=== PATIENT | male | born 1945 | race Caucasian/White ===

== ENCOUNTER 2017-05-19 11:39 | Inpatient (IN) | payer MEDICARE ==
[~2017-05-19] VITALS: Ht 177.8 cm; Wt 114.1 kg
[~2017-05-19 11:39] MED LIST: DOXA2TAB2 PO; LISI-600 PO; PRAV20TA4 PO; TEST200V10 IM
[2017-05-19 11:59] LABS: BASOPHILS % (AUTO) 0.3 % (0-1); EOSINOPHILS # (AUTO) 0.1 X10'3 (0-0.9); HEMATOCRIT 46.5 % (42.0-52.0); HEMOGLOBIN 15.9 g/dl (14.0-17.9); LYMPHOCYTES # (AUTO) 1.5 X10'3 (1.1-4.8); LYMPHOCYTES % (AUTO) 22.3 % (21-51); MEAN CORPUSCULAR HEMOGLOBIN 28.6 PG (27.0-31.0); MEAN CORPUSCULAR HGB CONC 34.2 % (33.0-36.5); MEAN CORPUSCULAR VOLUME 83.6 FL (78-98); MEAN PLATELET VOLUME 9.6 FL (7.4-10.4); MONOCYTES # (AUTO) 0.3 X10'3 (0-0.9); MONOCYTES % (AUTO) 3.8 % (2-12); NEUTROPHILS # (AUTO) 4.7 X10'3 (1.8-7.7); NEUTROPHILS % (AUTO) 71.6 % (42-75); PLATELET COUNT 142 X10'3 (140-440); RED BLOOD COUNT 5.56 X10'6 (4.70-6.10); WHITE BLOOD COUNT 6.6 X10'3 (4.5-11.0)
[2017-05-19 12:08] LABS: PARTIAL THROMBOPLASTIN TIME 24 SECONDS (22-32); PROTHROMBIN TIME 10.2 SECONDS (9.0-12.0)
[2017-05-19 12:17] LABS: ALANINE AMINOTRANSFERASE 41 U/L (12-78); ALBUMIN 4.4 G/DL (3.4-5.0); ALBUMIN/GLOBULIN RATIO 1.3 (1.1-1.5); ALKALINE PHOSPHATASE 147 IU/L (46-116); ANION GAP 12 (8-16); ASPARTATE AMINO TRANSFERASE 24 U/L (10-37); BILIRUBIN,TOTAL 1.6 MG/DL (0.1-1.0); BLOOD UREA NITROGEN 25 MG/DL (7-18); BUN/CREATININE RATIO 17.1 (5.4-32.0); CALCIUM 9.6 MG/DL (8.5-10.1); CHLORIDE 103 MMOL/L (99-107); CREATININE 1.46 MG/DL (0.60-1.10); GLUCOSE 247 MG/DL (70-104); POTASSIUM 4.1 MMOL/L (3.5-5.1); SODIUM 140 MMOL/L (135-145); TOTAL CARBON DIOXIDE 24.9 MMOL/L (24-32); TOTAL PROTEIN 7.9 G/DL (6.4-8.2); eGFR 48 ML/MIN
[2017-05-19] MEDS ORDERED: ondansetron/PF 4mg/2ml inj IV PRN (13:10)
[2017-05-19] MEDS ORDERED: morphine 4 MG/ML inj SYRINge IV PRN ×2 (13:10)
[2017-05-19] MEDS ORDERED: potassium Cl 20 mEq SR tablet PO PRN ×2 (13:10)
[2017-05-19] MEDS ORDERED: magnesium 4gm in 100ml NS 100 ML IV PRN (13:10)
[2017-05-19] MEDS ORDERED: potassium Cl 40MEQ/NS 500ml 500 ML IV PRN ×2 (13:10)
[2017-05-19] MEDS ORDERED: magnesium 2GM in 50ml NS 50 ML IV PRN (13:10)
[2017-05-19] MEDS ORDERED: mag hydrox/Alum hydrox/simeth 30ml oral suspension PO PRN (13:10)
[2017-05-19] MEDS ORDERED: magnesium hydroxide 30ml (MOM) UD suspension PO PRN (13:10)
[2017-05-19] MEDS ORDERED: magnesium Cl slow-release 64mg tablet PO PRN (13:10)
[2017-05-19 15:58] LABS: HEMOGLOBIN A1C 8.4 % (4.5-6.2)
[2017-05-19 16:20] VITALS: BP 141/84
[2017-05-19] MEDS ORDERED: ASPI-1265 PO (17:57)
[2017-05-19 19:00] VITALS: BP_SYST 121; BP_SYST 122; BP_DIAS 77; BP_DIAS 81
[2017-05-19] MEDS ORDERED: enoxaparin 40mg/0.4ml syringe SUBCUT SCH (21:00)
[2017-05-19] MEDS: atorvastatin 10mg tablet PO SCH (21:22)
[2017-05-19] MEDS: lisinopril 20mg tablet PO SCH (21:22)
[2017-05-19] MEDS: enoxaparin 30mg/0.3ml syringe SUBCUT SCH (21:23)
[2017-05-19] MEDS: enoxaparin 80mg/0.8ml syringe SUBCUT SCH (21:24)
[2017-05-19 23:00] VITALS: BP 107/65
[2017-05-20] VITALS (16 sets, daily range): BP systolic 111–140; BP diastolic 67–82
[2017-05-20 05:46] LABS: CHOL/HDL RATIO 5.2 (0.00-4.99); CHOLESTEROL 141 MG/DL (0-200); HDL CHOLESTEROL 27 MG/DL (35-60); LDL CHOLESTEROL 91 MG/DL (50-100); MAGNESIUM 2.1 MG/DL (1.5-2.4); TRIGLYCERIDES 122 MG/DL (20-135)
[2017-05-20 05:56] LABS: TROPONIN I 0.66 NG/ML (0.0-0.05)
[2017-05-20] MEDS: K and/or MAG REPLACEMENT MC SCH (08:00)
[2017-05-20] MEDS ORDERED: enoxaparin 40mg/0.4ml syringe SUBCUT SCH (08:00)
[2017-05-20] MEDS: guaiFENesin ER 600mg tablet PO SCH ×2 (09:35→21:28)
[2017-05-20] MEDS: enoxaparin 30mg/0.3ml syringe SUBCUT SCH ×2 (09:38→21:34)
[2017-05-20] MEDS: enoxaparin 80mg/0.8ml syringe SUBCUT SCH ×2 (09:40→21:33)
[2017-05-20] MEDS: doxazosin mesylate 2mg tablet PO SCH (09:53)
[2017-05-20] MEDS ORDERED: aspirin 325mg tablet PO ONE (10:20)
[2017-05-20] MEDS: normal saline 1000ml 1,000 ML IV SCH ×3 (10:52→22:25)
[2017-05-20] MEDS: metoprolol tartrate 25mg tablet PO SCH ×2 (10:58→21:28)
[2017-05-20 11:29] LABS: ALBUMIN 4.2 G/DL (3.4-5.0); ANION GAP 10 (8-16); BLOOD UREA NITROGEN 22 MG/DL (7-18); BUN/CREATININE RATIO 17.5 (5.4-32.0); CALCIUM 9.5 MG/DL (8.5-10.1); CHLORIDE 102 MMOL/L (99-107); CREATININE 1.26 MG/DL (0.60-1.10); GLUCOSE 184 MG/DL (70-104); POTASSIUM 4.3 MMOL/L (3.5-5.1); SODIUM 140 MMOL/L (135-145); TOTAL CARBON DIOXIDE 27.7 MMOL/L (24-32); eGFR 57 ML/MIN
[2017-05-20] MEDS ORDERED: iohexol 350MG/ML 100ml bottle IV ONE (12:13)
[2017-05-20] MEDS ORDERED: LIDOcaine 1%/PF (10mg/ml) 5ml vial ONE ×2 (12:13→13:21)
[2017-05-20] MEDS ORDERED: heparin 1,000 UNITS/NS 500ml 0 ML ONE (12:14)
[2017-05-20] MEDS ORDERED: midazolam 2 mg/2 ml injection ONE (13:21)
[2017-05-20] MEDS ORDERED: heparin 1,000unit/ml 10ml vial 10 ML ONE (13:21)
[2017-05-20] MEDS ORDERED: fentaNYL/PF 50MCG/1 ML 2ML syringe ONE (13:21)
[2017-05-20] MEDS ORDERED: iohexol 350 MG/1 ML 200ml bottle ONE (14:05)
[2017-05-20] MEDS ORDERED: iohexol 350 MG/ML 50ML vial IV ONE (14:10)
[2017-05-20] MEDS ORDERED: normal saline 1000ml 1,000 ML IV SCH (16:00)
[2017-05-20] MEDS ORDERED: HYDROcodone/acetaminophen 5mg/325mg tablet PO PRN (16:00)
[2017-05-20] MEDS ORDERED: nitroGLYCERIN 0.4mg SUBLingual tab SL PRN (16:05)
[2017-05-20] MEDS ORDERED: OXAZEpam 15mg capsule PO PRN (16:05)
[2017-05-20] MEDS ORDERED: proCHLORperazine 10 MG/2 ml inj IV PRN (16:05)
[2017-05-20 16:21] LABS: CHOLESTEROL 136 MG/DL (0-200); HDL CHOLESTEROL 27 MG/DL (35-60); LDL CHOLESTEROL 88 MG/DL (50-100); TRIGLYCERIDES 115 MG/DL (20-135)
[2017-05-20] MEDS: lisinopril 20mg tablet PO SCH (21:34)
[2017-05-20] MEDS: atorvastatin 10mg tablet PO SCH (21:34)
[2017-05-20] MEDS: docusate sod 100mg capsule PO SCH (22:33)
[2017-05-21 03:00] VITALS: BP 128/79
[2017-05-21 03:11] VITALS: BP 126/82
[2017-05-21] MEDS: acetaminophen 325mg tablet PO PRN ×2 (04:23→12:26)
[2017-05-21 07:00] VITALS: BP_SYST 90; BP_SYST 96; BP_DIAS 52; BP_DIAS 53
[2017-05-21] MEDS: metoprolol tartrate 25mg tablet PO SCH ×2 (08:00→19:46)
[2017-05-21] MEDS: doxazosin mesylate 2mg tablet PO SCH (08:00)
[2017-05-21] MEDS: K and/or MAG REPLACEMENT MC SCH (08:00)
[2017-05-21] MEDS ORDERED: aspirin 325mg tablet PO SCH (08:30)
[2017-05-21] MEDS ORDERED: dextrose ORAL solution 15 GM/59 ML bottle PO PRN ×2 (08:45)
[2017-05-21] MEDS ORDERED: dextrose 50%-water 50ml dispensing syringe IV PRN ×2 (08:45)
[2017-05-21] MEDS ORDERED: MESSAGE TO PHARMACY PO ONE (08:45)
[2017-05-21] MEDS ORDERED: glucagon, human recombinant 1mg kit SUBCUT PRN (08:45)
[2017-05-21] MEDS: guaiFENesin ER 600mg tablet PO SCH ×2 (09:46→19:46)
[2017-05-21] MEDS: docusate sod 100mg capsule PO SCH ×2 (09:46→19:46)
[2017-05-21] MEDS: enoxaparin 30mg/0.3ml syringe SUBCUT SCH (09:51)
[2017-05-21] MEDS: enoxaparin 80mg/0.8ml syringe SUBCUT SCH (09:53)
[2017-05-21] MEDS: insulin Lispro (HumaLOG) vial - multi-dose SQ SCH (10:00)
[2017-05-21] MEDS: aspirin 81mg tab.chew PO SCH (10:03)
[2017-05-21] MEDS: HYDROcodone/acetaminophen 10/325mg tab PO PRN ×2 (14:47→19:47)
[2017-05-21 15:00] VITALS: BP 103/57
[2017-05-21] MEDS: normal saline 1000ml 1,000 ML IV SCH (16:20)
[2017-05-21 18:30] VITALS: BP 104/60
[2017-05-21] MEDS ORDERED: cyclobenzaprine 10mg tablet PO PRN (20:10)
[2017-05-21] MEDS: atorvastatin 10mg tablet PO SCH (20:46)
[2017-05-21] MEDS: lisinopril 20mg tablet PO SCH (20:46)
[2017-05-21] MEDS: insulin glargine (Lantus) pen - multi-dose SQ SCH (20:51)
[2017-05-21 22:00] VITALS: BP 91/57
[2017-05-22] MEDS: normal saline 1000ml 1,000 ML IV SCH ×3 (02:43→22:20)
[2017-05-22 05:31] LABS: BASOPHILS % (AUTO) 0.2 % (0-1); EOSINOPHILS # (AUTO) 0.1 X10'3 (0-0.9); EOSINOPHILS % (AUTO) 1.3 % (0-6); HEMATOCRIT 31.2 % (42.0-52.0); HEMOGLOBIN 10.4 g/dl (14.0-17.9); LYMPHOCYTES # (AUTO) 1.9 X10'3 (1.1-4.8); LYMPHOCYTES % (AUTO) 18.9 % (21-51); MEAN CORPUSCULAR HEMOGLOBIN 28.5 PG (27.0-31.0); MEAN CORPUSCULAR HGB CONC 33.5 % (33.0-36.5); MEAN CORPUSCULAR VOLUME 85.2 FL (78-98); MEAN PLATELET VOLUME 9.9 FL (7.4-10.4); MONOCYTES # (AUTO) 0.5 X10'3 (0-0.9); NEUTROPHILS # (AUTO) 7.4 X10'3 (1.8-7.7); NEUTROPHILS % (AUTO) 74.6 % (42-75); PLATELET COUNT 129 X10'3 (140-440); RED BLOOD COUNT 3.66 X10'6 (4.70-6.10); RED CELL DISTRIBUTION WIDTH 13.4 % (11.5-14.5)
[2017-05-22 05:58] LABS: ALBUMIN 2.9 G/DL (3.4-5.0); ANION GAP 9 (8-16); BLOOD UREA NITROGEN 30 MG/DL (7-18); BUN/CREATININE RATIO 17.9 (5.4-32.0); CALCIUM 8.2 MG/DL (8.5-10.1); CHLORIDE 108 MMOL/L (99-107); CREATININE 1.68 MG/DL (0.60-1.10); GLUCOSE 243 MG/DL (70-104); POTASSIUM 4.5 MMOL/L (3.5-5.1); SODIUM 140 MMOL/L (135-145); TOTAL CARBON DIOXIDE 23.4 MMOL/L (24-32); eGFR 41 ML/MIN
[2017-05-22 06:00] VITALS: BP 98/60
[2017-05-22] MEDS: metoprolol tartrate 25mg tablet PO SCH ×2 (08:00→20:05)
[2017-05-22] MEDS: K and/or MAG REPLACEMENT MC SCH (08:00)
[2017-05-22] MEDS: doxazosin mesylate 2mg tablet PO SCH (08:00)
[2017-05-22 08:45] LABS: PARTIAL THROMBOPLASTIN TIME 26 SECONDS (22-32); PROTHROMBIN TIME 10.2 SECONDS (9.0-12.0)
[2017-05-22 11:00] VITALS: BP 102/60
[2017-05-22 11:32] LABS: BASOPHILS % (AUTO) 0.3 % (0-1); EOSINOPHILS # (AUTO) 0.1 X10'3 (0-0.9); EOSINOPHILS % (AUTO) 1.1 % (0-6); HEMATOCRIT 31.5 % (42.0-52.0); HEMOGLOBIN 10.8 g/dl (14.0-17.9); LYMPHOCYTES # (AUTO) 2.6 X10'3 (1.1-4.8); LYMPHOCYTES % (AUTO) 24.4 % (21-51); MEAN CORPUSCULAR HEMOGLOBIN 28.5 PG (27.0-31.0); MEAN CORPUSCULAR HGB CONC 34.2 % (33.0-36.5); MEAN CORPUSCULAR VOLUME 83.4 FL (78-98); MEAN PLATELET VOLUME 10.4 FL (7.4-10.4); MONOCYTES # (AUTO) 0.5 X10'3 (0-0.9); MONOCYTES % (AUTO) 4.8 % (2-12); NEUTROPHILS # (AUTO) 7.3 X10'3 (1.8-7.7); NEUTROPHILS % (AUTO) 69.4 % (42-75); PLATELET COUNT 143 X10'3 (140-440); RED BLOOD COUNT 3.78 X10'6 (4.70-6.10); RED CELL DISTRIBUTION WIDTH 13.5 % (11.5-14.5); WHITE BLOOD COUNT 10.5 X10'3 (4.5-11.0)
[2017-05-22] MEDS: docusate sod 100mg capsule PO SCH ×2 (12:19→20:04)
[2017-05-22] MEDS: guaiFENesin ER 600mg tablet PO SCH ×2 (12:21→20:05)
[2017-05-22] MEDS: insulin Lispro (HumaLOG) vial - multi-dose SQ SCH (12:57)
[2017-05-22 15:00] VITALS: BP 110/57
[2017-05-22 18:00] VITALS: BP 124/72
[2017-05-22 20:03] VITALS: BP 109/60
[2017-05-22] MEDS: lisinopril 20mg tablet PO SCH (20:05)
[2017-05-22] MEDS: atorvastatin 10mg tablet PO SCH (20:07)
[2017-05-22] MEDS: insulin glargine (Lantus) pen - multi-dose SQ SCH (21:07)
[2017-05-22 22:00] VITALS: BP 101/66
[2017-05-23 02:00] VITALS: BP 116/76
[2017-05-23 06:14] LABS: ALBUMIN 2.9 G/DL (3.4-5.0); ANION GAP 9 (8-16); BLOOD UREA NITROGEN 22 MG/DL (7-18); BUN/CREATININE RATIO 16.5 (5.4-32.0); CALCIUM 8.1 MG/DL (8.5-10.1); CHLORIDE 109 MMOL/L (99-107); CREATININE 1.33 MG/DL (0.60-1.10); GLUCOSE 130 MG/DL (70-104); MAGNESIUM 1.9 MG/DL (1.5-2.4); SODIUM 144 MMOL/L (135-145); TOTAL CARBON DIOXIDE 25.7 MMOL/L (24-32); eGFR 53 ML/MIN
[2017-05-23 07:00] VITALS: BP 104/64
[2017-05-23] MEDS: guaiFENesin ER 600mg tablet PO SCH ×2 (07:17→19:32)
[2017-05-23] MEDS: metoprolol tartrate 25mg tablet PO SCH ×3 (07:17→08:00)
[2017-05-23] MEDS: doxazosin mesylate 2mg tablet PO SCH (07:17)
[2017-05-23] MEDS: aspirin 81mg tab.chew PO SCH (07:17)
[2017-05-23] MEDS: docusate sod 100mg capsule PO SCH ×2 (07:18→19:32)
[2017-05-23] MEDS: K and/or MAG REPLACEMENT MC SCH (08:00)
[2017-05-23] MEDS: normal saline 1000ml 1,000 ML IV SCH ×2 (08:20→18:20)
[2017-05-23] MEDS: insulin Lispro (HumaLOG) vial - multi-dose SQ SCH ×3 (08:28→19:22)
[2017-05-23 11:00] VITALS: BP 94/39
[2017-05-23 15:00] VITALS: BP 106/61
[2017-05-23 19:00] VITALS: BP 100/55
[2017-05-23] MEDS: lisinopril 20mg tablet PO SCH (21:17)
[2017-05-23] MEDS: atorvastatin 10mg tablet PO SCH (21:17)
[2017-05-23] MEDS: insulin glargine (Lantus) pen - multi-dose SQ SCH (21:25)
[2017-05-23 23:00] VITALS: BP 103/56
[2017-05-24 03:00] VITALS: BP 140/78
[2017-05-24] MEDS: normal saline 1000ml 1,000 ML IV SCH ×2 (03:01→14:58)
[2017-05-24 06:00] VITALS: BP 125/76
[2017-05-24 06:08] LABS: ALBUMIN 2.8 G/DL (3.4-5.0); ANION GAP 9 (8-16); BLOOD UREA NITROGEN 18 MG/DL (7-18); BUN/CREATININE RATIO 14.4 (5.4-32.0); CALCIUM 8.1 MG/DL (8.5-10.1); CHLORIDE 109 MMOL/L (99-107); CREATININE 1.25 MG/DL (0.60-1.10); GLUCOSE 144 MG/DL (70-104); MAGNESIUM 1.9 MG/DL (1.5-2.4); POTASSIUM 3.9 MMOL/L (3.5-5.1); SODIUM 143 MMOL/L (135-145); TOTAL CARBON DIOXIDE 25.5 MMOL/L (24-32); eGFR 57 ML/MIN
[2017-05-24] MEDS: metoprolol tartrate 25mg tablet PO SCH ×2 (07:29→19:20)
[2017-05-24] MEDS: docusate sod 100mg capsule PO SCH ×2 (07:29→19:21)
[2017-05-24] MEDS: guaiFENesin ER 600mg tablet PO SCH ×2 (07:29→19:20)
[2017-05-24] MEDS: aspirin 81mg tab.chew PO SCH (07:30)
[2017-05-24] MEDS: doxazosin mesylate 2mg tablet PO SCH (07:30)
[2017-05-24] MEDS: K and/or MAG REPLACEMENT MC SCH (08:00)
[2017-05-24] MEDS: insulin Lispro (HumaLOG) vial - multi-dose SQ SCH ×3 (08:32→19:25)
[2017-05-24 11:00] VITALS: BP 109/60
[2017-05-24 13:16] LABS: ABG BASE EXCESS -0.6 mmol/L (-2.0-3.0); ABG HCO3 23.2 mmol/L (22.0-26.0); ABG OXYGEN SATURATION 94.1 % (95-98); ABG PCO2 (T) 35.4 mmHg (35.0-48.0); ABG PH (T) 7.435 (7.350-7.450); ABG PO2 (T) 71.5 mmHg (83-108); ALLEN'S TEST Positive; FMetHb 0.1 % (0.3-1.12); TOTAL HEMOGLOBIN 11.5 G/dl (14.0-18.0)
[2017-05-24 15:00] VITALS: BP 124/71
[2017-05-24 19:00] VITALS: BP 141/72
[2017-05-24] MEDS: insulin glargine (Lantus) pen - multi-dose SQ SCH (21:00)
[2017-05-24] MEDS: lisinopril 20mg tablet PO SCH (21:45)
[2017-05-24] MEDS: atorvastatin 10mg tablet PO SCH (21:45)
[2017-05-24 23:00] VITALS: BP 117/75
[2017-05-25] MEDS: normal saline 1000ml 1,000 ML IV SCH ×3 (01:07→22:26)
[2017-05-25 03:00] VITALS: BP 108/62
[2017-05-25 05:56] LABS: ALBUMIN 3.2 G/DL (3.4-5.0); ANION GAP 8 (8-16); BLOOD UREA NITROGEN 17 MG/DL (7-18); BUN/CREATININE RATIO 25.8 (5.4-32.0); CALCIUM 8.7 MG/DL (8.5-10.1); CHLORIDE 108 MMOL/L (99-107); CREATININE 0.66 MG/DL (0.60-1.10); GLUCOSE 143 MG/DL (70-104); MAGNESIUM 2.2 MG/DL (1.5-2.4); POTASSIUM 4.5 MMOL/L (3.5-5.1); SODIUM 143 MMOL/L (135-145); TOTAL CARBON DIOXIDE 27.2 MMOL/L (24-32); eGFR > 90 ML/MIN
[2017-05-25 06:00] VITALS: BP 124/68
[2017-05-25] MEDS: K and/or MAG REPLACEMENT MC SCH (08:00)
[2017-05-25] MEDS: metoprolol tartrate 25mg tablet PO SCH ×2 (08:17→22:11)
[2017-05-25] MEDS: docusate sod 100mg capsule PO SCH ×2 (08:17→22:12)
[2017-05-25] MEDS: aspirin 81mg tab.chew PO SCH (08:17)
[2017-05-25] MEDS: guaiFENesin ER 600mg tablet PO SCH ×2 (08:18→20:00)
[2017-05-25] MEDS: doxazosin mesylate 2mg tablet PO SCH (08:24)
[2017-05-25 11:00] VITALS: BP 112/71
[2017-05-25] MEDS: insulin Lispro (HumaLOG) vial - multi-dose SQ SCH (13:48)
[2017-05-25 15:00] VITALS: BP 114/65
[2017-05-25 19:00] VITALS: BP 115/85
[2017-05-25] MEDS: insulin glargine (Lantus) pen - multi-dose SQ SCH (21:00)
[2017-05-25] MEDS: atorvastatin 10mg tablet PO SCH (22:15)
[2017-05-25] MEDS: lisinopril 20mg tablet PO SCH (22:16)
[2017-05-25 23:00] VITALS: BP 115/85
[2017-05-26 03:00] VITALS: BP 112/61
[2017-05-26] MEDS: benzonatate 100mg capsule PO PRN ×2 (03:02→19:45)
[2017-05-26] MEDS ORDERED: insulin regular, human inj. 100 UNITS in normal saline 100ml IV soln 100 ML IV SCH ×2 (05:00)
[2017-05-26] MEDS ORDERED: insulin Lispro (HumaLOG) vial - multi-dose SQ SCH (05:00)
[2017-05-26] MEDS ORDERED: ceFAZolin inj. 3,000 MG in normal saline 100ml IV soln 100 ML IV ONE (05:00)
[2017-05-26] MEDS ORDERED: dextrose 50%-water 50ml dispensing syringe IV PRN (05:00)
[2017-05-26 05:47] LABS: ALBUMIN 3.1 G/DL (3.4-5.0); ANION GAP 6 (8-16); BLOOD UREA NITROGEN 19 MG/DL (7-18); BUN/CREATININE RATIO 15.1 (5.4-32.0); CALCIUM 8.5 MG/DL (8.5-10.1); CHLORIDE 108 MMOL/L (99-107); CREATININE 1.26 MG/DL (0.60-1.10); GLUCOSE 146 MG/DL (70-104); MAGNESIUM 2.1 MG/DL (1.5-2.4); POTASSIUM 4.1 MMOL/L (3.5-5.1); SODIUM 142 MMOL/L (135-145); TOTAL CARBON DIOXIDE 28.2 MMOL/L (24-32); eGFR 57 ML/MIN
[2017-05-26 05:58] LABS: BASOPHILS % (AUTO) 0.3 % (0-1); EOSINOPHILS # (AUTO) 0.1 X10'3 (0-0.9); EOSINOPHILS % (AUTO) 1.7 % (0-6); HEMATOCRIT 26.6 % (42.0-52.0); HEMOGLOBIN 9.4 g/dl (14.0-17.9); LYMPHOCYTES # (AUTO) 1.9 X10'3 (1.1-4.8); LYMPHOCYTES % (AUTO) 28.5 % (21-51); MEAN CORPUSCULAR HEMOGLOBIN 29.7 PG (27.0-31.0); MEAN CORPUSCULAR HGB CONC 35.5 % (33.0-36.5); MEAN CORPUSCULAR VOLUME 83.8 FL (78-98); MEAN PLATELET VOLUME 9.6 FL (7.4-10.4); MONOCYTES # (AUTO) 0.5 X10'3 (0-0.9); NEUTROPHILS # (AUTO) 4.3 X10'3 (1.8-7.7); NEUTROPHILS % (AUTO) 62.5 % (42-75); PLATELET COUNT 143 X10'3 (140-440); RED BLOOD COUNT 3.18 X10'6 (4.70-6.10); RED CELL DISTRIBUTION WIDTH 12.9 % (11.5-14.5); WHITE BLOOD COUNT 6.8 X10'3 (4.5-11.0)
[2017-05-26 06:00] VITALS: BP 123/80
[2017-05-26] MEDS: normal saline 1000ml 1,000 ML IV SCH (06:20)
[2017-05-26] MEDS: K and/or MAG REPLACEMENT MC SCH (08:00)
[2017-05-26] MEDS: aspirin 81mg tab.chew PO SCH (08:30)
[2017-05-26] MEDS: docusate sod 100mg capsule PO SCH ×2 (08:41→19:45)
[2017-05-26] MEDS: metoprolol tartrate 25mg tablet PO SCH ×2 (08:42→19:46)
[2017-05-26] MEDS: doxazosin mesylate 2mg tablet PO SCH (08:47)
[2017-05-26] MEDS ORDERED: ringers solution, lacted 1,000 ML IV ONE (09:23)
[2017-05-26 11:00] VITALS: BP 112/61
[2017-05-26] MEDS: insulin Lispro (HumaLOG) vial - multi-dose SQ SCH ×2 (13:51→20:00)
[2017-05-26 15:00] VITALS: BP 95/54
[2017-05-26 19:00] VITALS: BP 129/72
[2017-05-26] MEDS: lisinopril 20mg tablet PO SCH (20:08)
[2017-05-26] MEDS: atorvastatin 10mg tablet PO SCH (20:10)
[2017-05-26 23:00] VITALS: BP 119/68
[2017-05-26] MEDS: insulin glargine (Lantus) pen - multi-dose SQ SCH (23:38)
[2017-05-27] VITALS (8 sets, daily range): BP systolic 94–126; BP diastolic 54–76
[2017-05-27] MEDS ORDERED: insulin regular, human inj. 100 UNITS in normal saline 100ml IV soln 100 ML IV SCH ×2 (05:30)
[2017-05-27] MEDS ORDERED: ceFAZolin inj. 3,000 MG in normal saline 100ml IV soln 100 ML IV ONE (05:30)
[2017-05-27 05:42] LABS: ANION GAP 8 (8-16); BLOOD UREA NITROGEN 25 MG/DL (7-18); BUN/CREATININE RATIO 16.4 (5.4-32.0); CALCIUM 8.6 MG/DL (8.5-10.1); CHLORIDE 105 MMOL/L (99-107); CREATININE 1.52 MG/DL (0.60-1.10); GLUCOSE 131 MG/DL (70-104); POTASSIUM 4.1 MMOL/L (3.5-5.1); SODIUM 140 MMOL/L (135-145); TOTAL CARBON DIOXIDE 26.9 MMOL/L (24-32); eGFR 46 ML/MIN
[2017-05-27 05:43] LABS: ALBUMIN 3.1 G/DL (3.4-5.0)
[2017-05-27] MEDS ORDERED: famotidine 20mg tablet PO ONE (06:00)
[2017-05-27] MEDS ORDERED: LORazepam 2 mg/ml vial IV ONE (06:00)
[2017-05-27] MEDS: K and/or MAG REPLACEMENT MC SCH (08:00)
[2017-05-27] MEDS: aspirin 81mg tab.chew PO SCH (08:30)
[2017-05-27] MEDS: doxazosin mesylate 2mg tablet PO SCH (08:31)
[2017-05-27] MEDS: metoprolol tartrate 25mg tablet PO SCH ×2 (08:31→21:10)
[2017-05-27] MEDS: docusate sod 100mg capsule PO SCH ×2 (08:31→21:10)
[2017-05-27] MEDS: insulin Lispro (HumaLOG) vial - multi-dose SQ SCH (08:40)
[2017-05-27] MEDS ORDERED: ringers solution, lacted 1,000 ML IV ONE (18:18)
[2017-05-27] MEDS: atorvastatin 10mg tablet PO SCH (21:10)
[2017-05-27] MEDS: lisinopril 20mg tablet PO SCH (21:10)
[2017-05-27] MEDS: insulin glargine (Lantus) pen - multi-dose SQ SCH (21:58)
[2017-05-27] MEDS: mupirocin 2% ointment 22GM TP SCH (23:26)
[2017-05-28] VITALS (19 sets, daily range): BP systolic 80–144; BP diastolic 38–74
[2017-05-28] MEDS ORDERED: dextrose 50%-water 50ml dispensing syringe IV PRN ×2 (05:30→11:40)
[2017-05-28] MEDS ORDERED: ceFAZolin inj. 3,000 MG in normal saline 100ml IV soln 100 ML IV ONE (05:30)
[2017-05-28] MEDS ORDERED: ringers solution, lacted 1,000 ML IV ONE (05:30)
[2017-05-28 05:52] LABS: ALBUMIN 3.3 G/DL (3.4-5.0); ANION GAP 7 (8-16); BLOOD UREA NITROGEN 24 MG/DL (7-18); BUN/CREATININE RATIO 17.4 (5.4-32.0); CALCIUM 8.9 MG/DL (8.5-10.1); CHLORIDE 107 MMOL/L (99-107); CREATININE 1.38 MG/DL (0.60-1.10); GLUCOSE 139 MG/DL (70-104); MAGNESIUM 2.2 MG/DL (1.5-2.4); POTASSIUM 4.7 MMOL/L (3.5-5.1); SODIUM 142 MMOL/L (135-145); TOTAL CARBON DIOXIDE 28.2 MMOL/L (24-32); eGFR 51 ML/MIN
[2017-05-28] MEDS: mupirocin 2% ointment 22GM TP SCH (05:54)
[2017-05-28 05:55] LABS: PROTHROMBIN TIME 10.2 SECONDS (9.0-12.0)
[2017-05-28] MEDS ORDERED: LORazepam 2 mg/ml vial IV ONE (06:00)
[2017-05-28] MEDS ORDERED: famotidine 20mg tablet PO ONE ×2 (06:00→06:05)
[2017-05-28 06:11] LABS: BASOPHILS % (AUTO) 0.2 % (0-1); EOSINOPHILS # (AUTO) 0.1 X10'3 (0-0.9); EOSINOPHILS % (AUTO) 1.3 % (0-6); HEMATOCRIT 29.2 % (42.0-52.0); HEMOGLOBIN 10.3 g/dl (14.0-17.9); LYMPHOCYTES # (AUTO) 2.2 X10'3 (1.1-4.8); LYMPHOCYTES % (AUTO) 24.6 % (21-51); MEAN CORPUSCULAR HEMOGLOBIN 29.6 PG (27.0-31.0); MEAN CORPUSCULAR HGB CONC 35.1 % (33.0-36.5); MEAN CORPUSCULAR VOLUME 84.3 FL (78-98); MEAN PLATELET VOLUME 9.9 FL (7.4-10.4); MONOCYTES # (AUTO) 0.6 X10'3 (0-0.9); MONOCYTES % (AUTO) 6.6 % (2-12); NEUTROPHILS # (AUTO) 6.1 X10'3 (1.8-7.7); NEUTROPHILS % (AUTO) 67.3 % (42-75); PLATELET COUNT 187 X10'3 (140-440); RED BLOOD COUNT 3.47 X10'6 (4.70-6.10); RED CELL DISTRIBUTION WIDTH 12.9 % (11.5-14.5)
[2017-05-28] MEDS ORDERED: SUFENTANIL CITRATE 50 MCG/ML 2ml ampule IV ONE (07:17)
[2017-05-28] MEDS ORDERED: MIDAZolam 1mg/ml 10ml vial ONE (07:17)
[2017-05-28] MEDS ORDERED: etomidate 2mg/ml inj. ONE (07:20)
[2017-05-28] MEDS ORDERED: rocuronium 10mg/ml inj IV ONE (07:20)
[2017-05-28] MEDS ORDERED: LIDOcaine 2% (20mg/ml) 5ml vial ONE (07:20)
[2017-05-28] MEDS ORDERED: methylPREDNISolone sod. succ. 500mg inj ONE (07:40)
[2017-05-28] MEDS ORDERED: magnesium 1 GM/2 ML inj ONE (07:40)
[2017-05-28] MEDS ORDERED: LIDOcaine 2% (20 mg/ml) 5ml cardiac syringe ONE (07:40)
[2017-05-28] MEDS ORDERED: albumin (human) 25% 100 ML IV solution IV ONE (07:40)
[2017-05-28] MEDS ORDERED: sodium bicarbonate (8.4%) 1 mEq/ml syringe ONE (07:40)
[2017-05-28] MEDS ORDERED: potassium Cl 2 mEq/ml inj IV ONE (07:40)
[2017-05-28] MEDS ORDERED: DOPamine/D5W 400mg/250ml bag IV ONE (07:40)
[2017-05-28] MEDS ORDERED: sevoflurane 250ml liquid IH ONE (07:40)
[2017-05-28] MEDS ORDERED: aminocaproic acid 250 MG/1 ML inj. ONE (07:40)
[2017-05-28] MEDS ORDERED: phenylephrine 10mg/ml inj IV ONE ×2 (07:40→12:23)
[2017-05-28] MEDS ORDERED: heparin 10,000 units/1 ML INJ ONE ×2 (07:40→08:00)
[2017-05-28] MEDS ORDERED: protamine sulf. 10mg/ml inj. IV ONE (07:40)
[2017-05-28] MEDS ORDERED: heparin 1,000 units/ml 10ml inj ONE (07:40)
[2017-05-28] MEDS ORDERED: nitroGLYCERIN in D5W 50mg/250ml (Tridil) infusion IV ONE (07:40)
[2017-05-28] MEDS ORDERED: calcium chloride 100 MG/1 ML inj IV ONE (07:40)
[2017-05-28] MEDS ORDERED: papaverine 30 mg/ml 2ml inj. IA ONE (08:00)
[2017-05-28] MEDS ORDERED: papaverine 30 mg/ml 2ml inj. ONE (08:00)
[2017-05-28] MEDS ORDERED: heparin 10,000 units/1 ML INJ IR ONE (08:00)
[2017-05-28 08:31] LABS: ABG BASE EXCESS VENOUS -0.8 mmol/L; ABG HCO3 VENOUS 23.4 mmol/L; ABG PCO2 VENOUS 36.6 mmHg; ABG PO2 VENOUS 351.9 mmHg; CL (ABG) 107 mmol/L (99-107); FCOHb VENOUS 0.6 %; FHHb VENOUS 0.9 %; FMetHb VENOUS 0.5 %; GLUCOSE (ABG) 129 mg/dl (70-105); IONIZED CA (ABG) 1.13 mmol/L (1.03-1.32); K (ABG) 4.1 mmol/L (3.3-5.1); NA (ABG) 136 mmol/L (135-145); TOTAL HEMOGLOBIN 10.3 G/dl (14.0-18.0)
[2017-05-28] MEDS ORDERED: insulin Lispro (HumaLOG) vial - multi-dose SQ SCH (09:00)
[2017-05-28 09:01] LABS: ACT @ 1.70 U 378 SEC (193-297); ACT @ 2.84 U 511 SEC (260-420); BASELINE ACT 169 SEC (101-148)
[2017-05-28 09:30] LABS: ABG BASE EXCESS -4.6 mmol/L (-2.0-3.0); ABG HCO3 20.9 mmol/L (22.0-26.0); ABG OXYGEN SATURATION 80.7 % (95-98); ABG PH 7.336 (7.350-7.450); CL (ABG) 105 mmol/L (99-107); FCOHb 1.1 % (0.5-1.5); FMetHb 0.3 % (0.3-1.12); FO2Hb 79.6 % (94-100); GLUCOSE (ABG) 131 mg/dl (70-105); IONIZED CA (ABG) 1.11 mmol/L (1.03-1.32); K (ABG) 4.2 mmol/L (3.3-5.1); NA (ABG) 135 mmol/L (135-145); TOTAL HEMOGLOBIN 9.7 G/dl (14.0-18.0)
[2017-05-28] MEDS ORDERED: ipratropium/albuterol 3ml nebule IH PRN (09:50)
[2017-05-28 10:05] LABS: ABG BASE EXCESS -1.9 mmol/L (-2.0-3.0); ABG HCO3 22.2 mmol/L (22.0-26.0); ABG OXYGEN SATURATION 99.4 % (95-98); ABG PCO2 35.1 mmHg (35.0-45.0); ABG PH 7.418 (7.350-7.450); ABG PO2 469.6 mmHg (60.0-100.0); CL (ABG) 104 mmol/L (99-107); FCOHb 0.7 % (0.5-1.5); FMetHb 0.3 % (0.3-1.12); FO2Hb 98.4 % (94-100); GLUCOSE (ABG) 170 mg/dl (70-105); IONIZED CA (ABG) 0.97 mmol/L (1.03-1.32); K (ABG) 5.6 mmol/L (3.3-5.1); NA (ABG) 134 mmol/L (135-145)
[2017-05-28 10:41] LABS: ABG BASE EXCESS -5.8 mmol/L (-2.0-3.0); ABG HCO3 19.5 mmol/L (22.0-26.0); ABG OXYGEN SATURATION 99.2 % (95-98); ABG PCO2 37.3 mmHg (35.0-45.0); ABG PH 7.337 (7.350-7.450); ABG PO2 461.1 mmHg (60.0-100.0); CL (ABG) 104 mmol/L (99-107); FCOHb 1.1 % (0.5-1.5); FMetHb 0.9 % (0.3-1.12); FO2Hb 97.2 % (94-100); GLUCOSE (ABG) 175 mg/dl (70-105); IONIZED CA (ABG) 1.48 mmol/L (1.03-1.32); K (ABG) 5.1 mmol/L (3.3-5.1); NA (ABG) 131 mmol/L (135-145); TOTAL HEMOGLOBIN 7.4 G/dl (14.0-18.0)
[2017-05-28 11:06] LABS: ABG BASE EXCESS VENOUS -5.2 mmol/L; ABG HCO3 VENOUS 20.3 mmol/L; ABG PCO2 VENOUS 39.4 mmHg; ABG PO2 VENOUS 42.1 mmHg; CL (ABG) 106 mmol/L (99-107); FCOHb VENOUS 1.2 %; FHHb VENOUS 23.9 %; FMetHb VENOUS 0.9 %; GLUCOSE (ABG) 171 mg/dl (70-105); IONIZED CA (ABG) 1.24 mmol/L (1.03-1.32); K (ABG) 4.6 mmol/L (3.3-5.1); NA (ABG) 134 mmol/L (135-145)
[2017-05-28 11:36] LABS: ACTIVATED CLOTTING TIME 135 SEC (101-148)
[2017-05-28] MEDS ORDERED: niCARDipine/sod cl 20mg/200ml 200 ML IV PRN (11:37)
[2017-05-28] MEDS ORDERED: DOPamine 400mg/D5W 250ml 250 ML IV PRN (11:37)
[2017-05-28] MEDS ORDERED: nitroGLYCERIN-Tridil 50MG/D5W 250 ML IV PRN (11:37)
[2017-05-28] MEDS ORDERED: ondansetron/PF 4mg/2ml inj IV PRN (11:40)
[2017-05-28] MEDS ORDERED: normal saline 250ml IV soln 250 ML IV PRN (11:40)
[2017-05-28] MEDS ORDERED: magnesium 4gm in 100ml NS 100 ML IV PRN (11:40)
[2017-05-28] MEDS ORDERED: albumin (Human) 5% 250ml 250 ML IV PRN (11:40)
[2017-05-28] MEDS ORDERED: sodium phosphate inj. 15 MMOL in dextrose 5%-water 150 ML IV PRN (11:40)
[2017-05-28] MEDS ORDERED: morphine 4 MG/ML inj SYRINge IV PRN (11:40)
[2017-05-28] MEDS ORDERED: metoclopramide 5 mg/ml inj IV PRN (11:40)
[2017-05-28] MEDS ORDERED: acetaminophen 325mg tablet PO PRN (11:40)
[2017-05-28] MEDS ORDERED: magnesium 2GM in 50ml NS 50 ML IV PRN (11:40)
[2017-05-28] MEDS ORDERED: magnesium hydroxide 30ml (MOM) UD suspension PO PRN (11:40)
[2017-05-28] MEDS ORDERED: Neutra Phos packet PO PRN (11:40)
[2017-05-28] MEDS ORDERED: potassium Cl 20mEq/100mL bag 100 ML IV PRN ×3 (11:40)
[2017-05-28] MEDS: insulin regular, human inj. 100 UNITS in normal saline 100ml IV soln 100 ML IV SCH ×12 (11:40→23:07)
[2017-05-28] MEDS ORDERED: sodium phosphate inj. 30 MMOL in dextrose 5%-water 250 ML IV PRN (11:40)
[2017-05-28] MEDS ORDERED: morphine 10mg/ml inj. ONE (11:41)
[2017-05-28] MEDS ORDERED: morphine 4 MG/ML inj SYRINge ONE (11:56)
[2017-05-28 12:00] LABS: BASOPHILS % (AUTO) 0 % (0-1); EOSINOPHILS % (AUTO) 0.4 % (0-6); HEMATOCRIT 26.3 % (42.0-52.0); HEMOGLOBIN 8.8 g/dl (14.0-17.9); LYMPHOCYTES # (AUTO) 1.4 X10'3 (1.1-4.8); LYMPHOCYTES % (AUTO) 13.2 % (21-51); MEAN CORPUSCULAR HEMOGLOBIN 28.3 PG (27.0-31.0); MEAN CORPUSCULAR HGB CONC 33.5 % (33.0-36.5); MEAN CORPUSCULAR VOLUME 84.6 FL (78-98); MEAN PLATELET VOLUME 9.8 FL (7.4-10.4); MONOCYTES # (AUTO) 0.3 X10'3 (0-0.9); MONOCYTES % (AUTO) 3.2 % (2-12); NEUTROPHILS # (AUTO) 8.8 X10'3 (1.8-7.7); NEUTROPHILS % (AUTO) 83.2 % (42-75); PLATELET COUNT 138 X10'3 (140-440); RED BLOOD COUNT 3.11 X10'6 (4.70-6.10); RED CELL DISTRIBUTION WIDTH 12.8 % (11.5-14.5); WHITE BLOOD COUNT 10.5 X10'3 (4.5-11.0)
[2017-05-28 12:01] LABS: ABG BASE EXCESS -3.2 mmol/L (-2.0-3.0); ABG HCO3 22.3 mmol/L (22.0-26.0); ABG OXYGEN SATURATION 96.2 % (95-98); ABG PCO2 (T) 40.3 mmHg (35.0-48.0); ABG PH (T) 7.357 (7.350-7.450); ABG PO2 (T) 89.8 mmHg (83-108); FCOHb 0.1 % (0.5-1.5); FMetHb 0.1 % (0.3-1.12); MINUTE VOLUME 8 L/min; PATIENT TEMPERATURE 36.2; PEEP 5 cm H2O; RESPIRATORY RATE 12 b/min; RESPIRATORY RATE (OBSERVED) 12 b/min; TIDAL VOLUME 600 mL; TOTAL HEMOGLOBIN 9.7 G/dl (14.0-18.0)
[2017-05-28 12:10] LABS: INR 1.1 INR; PARTIAL THROMBOPLASTIN TIME 24 SECONDS (22-32); PROTHROMBIN TIME 11.3 SECONDS (9.0-12.0)
[2017-05-28 12:17] LABS: ALANINE AMINOTRANSFERASE 50 U/L (12-78); ALBUMIN 2.7 G/DL (3.4-5.0); ALBUMIN/GLOBULIN RATIO 1.2 (1.1-1.5); ALKALINE PHOSPHATASE 63 IU/L (46-116); ANION GAP 8 (8-16); ASPARTATE AMINO TRANSFERASE 30 U/L (10-37); BILIRUBIN,TOTAL 2.7 MG/DL (0.1-1.0); BLOOD UREA NITROGEN 22 MG/DL (7-18); BUN/CREATININE RATIO 17.1 (5.4-32.0); CALCIUM 8.2 MG/DL (8.5-10.1); CHLORIDE 109 MMOL/L (99-107); CREATININE 1.29 MG/DL (0.60-1.10); GLUCOSE 172 MG/DL (70-104); MAGNESIUM 3.7 MG/DL (1.5-2.4); PHOSPHORUS 2.9 MG/DL (2.3-4.5); POTASSIUM 4.4 MMOL/L (3.5-5.1); SODIUM 142 MMOL/L (135-145); TOTAL CARBON DIOXIDE 24.7 MMOL/L (24-32); eGFR 55 ML/MIN
[2017-05-28] MEDS ORDERED: esmolol inj. 10 ML IV ONE (12:24)
[2017-05-28] MEDS: insulin Lispro (HumaLOG) vial - multi-dose SQ SCH ×2 (12:25→17:21)
[2017-05-28] MEDS: sodium chloride 0.45% 1,000 ML IV SCH (12:26)
[2017-05-28 13:57] LABS: ABG PO2 47.4 mmHg (60.0-100.0)
[2017-05-28] MEDS ORDERED: NORepinephrine 8mg/ 250ml NS 250 ML IV ONE (14:08)
[2017-05-28] MEDS ORDERED: NORepinephrine 8mg/ 250ml NS 250 ML IV SCH (14:15)
[2017-05-28] MEDS: ceFAZolin 1GM/D5W- ADD-VANTAGE 50 ML IV SCH (16:54)
[2017-05-28 17:05] LABS: ABG HCO3 19.4 mmol/L (22.0-26.0); ABG OXYGEN SATURATION 94.4 % (95-98); ABG PCO2 (T) 32.8 mmHg (35.0-48.0); ABG PH (T) 7.387 (7.350-7.450); ABG PO2 (T) 75.7 mmHg (83-108); FCOHb 0.3 % (0.5-1.5); FO2Hb 94.1 % (94-100); MINUTE VOLUME 11 L/min; PATIENT TEMPERATURE 36.5; PEEP 5 cm H2O; TOTAL HEMOGLOBIN 10.3 G/dl (14.0-18.0)
[2017-05-28 18:04] LABS: BASOPHILS % (AUTO) 0 % (0-1); EOSINOPHILS # (AUTO) 0.2 X10'3 (0-0.9); EOSINOPHILS % (AUTO) 1.9 % (0-6); HEMATOCRIT 26.7 % (42.0-52.0); HEMOGLOBIN 9.3 g/dl (14.0-17.9); LYMPHOCYTES # (AUTO) 0.3 X10'3 (1.1-4.8); LYMPHOCYTES % (AUTO) 2.8 % (21-51); MEAN CORPUSCULAR HEMOGLOBIN 29.5 PG (27.0-31.0); MEAN CORPUSCULAR HGB CONC 34.7 % (33.0-36.5); MEAN CORPUSCULAR VOLUME 84.9 FL (78-98); MEAN PLATELET VOLUME 9.4 FL (7.4-10.4); MONOCYTES # (AUTO) 0.3 X10'3 (0-0.9); MONOCYTES % (AUTO) 3.2 % (2-12); NEUTROPHILS # (AUTO) 9.3 X10'3 (1.8-7.7); NEUTROPHILS % (AUTO) 92.1 % (42-75); PLATELET COUNT 160 X10'3 (140-440); RED BLOOD COUNT 3.14 X10'6 (4.70-6.10); WHITE BLOOD COUNT 10.1 X10'3 (4.5-11.0)
[2017-05-28 18:14] LABS: ALBUMIN 3.2 G/DL (3.4-5.0); ANION GAP 12 (8-16); BLOOD UREA NITROGEN 22 MG/DL (7-18); BUN/CREATININE RATIO 13.8 (5.4-32.0); CALCIUM 8.2 MG/DL (8.5-10.1); CHLORIDE 110 MMOL/L (99-107); CREATININE 1.59 MG/DL (0.60-1.10); GLUCOSE 131 MG/DL (70-104); POTASSIUM 4.5 MMOL/L (3.5-5.1); SODIUM 143 MMOL/L (135-145); eGFR 43 ML/MIN
[2017-05-28] MEDS: mupirocin 2% ointment 22GM NS SCH (19:36)
[2017-05-28] MEDS: docusate sod 100mg capsule PO SCH (19:36)
[2017-05-28] MEDS: vancomycin/NS 1 GM ADD-VANTAGE 250 ML IV SCH (19:36)
[2017-05-29] VITALS (24 sets, daily range): BP systolic 93–140; BP diastolic 50–78
[2017-05-29] MEDS: ceFAZolin 1GM/D5W- ADD-VANTAGE 50 ML IV SCH ×4 (00:03→23:37)
[2017-05-29] MEDS: HYDROcodone/acetaminophen 10/325mg tab PO PRN ×4 (01:10→23:39)
[2017-05-29 03:31] LABS: BASOPHILS % (AUTO) 0 % (0-1); EOSINOPHILS % (AUTO) 0 % (0-6); HEMATOCRIT 25.8 % (42.0-52.0); HEMOGLOBIN 8.9 g/dl (14.0-17.9); LYMPHOCYTES # (AUTO) 0.7 X10'3 (1.1-4.8); LYMPHOCYTES % (AUTO) 6.9 % (21-51); MEAN CORPUSCULAR HEMOGLOBIN 29.2 PG (27.0-31.0); MEAN CORPUSCULAR HGB CONC 34.6 % (33.0-36.5); MEAN CORPUSCULAR VOLUME 84.4 FL (78-98); MEAN PLATELET VOLUME 9.7 FL (7.4-10.4); MONOCYTES # (AUTO) 0.6 X10'3 (0-0.9); MONOCYTES % (AUTO) 6.2 % (2-12); NEUTROPHILS # (AUTO) 8.5 X10'3 (1.8-7.7); NEUTROPHILS % (AUTO) 86.9 % (42-75); PLATELET COUNT 157 X10'3 (140-440); RED BLOOD COUNT 3.05 X10'6 (4.70-6.10); RED CELL DISTRIBUTION WIDTH 13.8 % (11.5-14.5); WHITE BLOOD COUNT 9.8 X10'3 (4.5-11.0)
[2017-05-29 03:45] LABS: PARTIAL THROMBOPLASTIN TIME 25 SECONDS (22-32); PROTHROMBIN TIME 10.5 SECONDS (9.0-12.0)
[2017-05-29 04:00] LABS: ALANINE AMINOTRANSFERASE 47 U/L (12-78); ALBUMIN 3.2 G/DL (3.4-5.0); ALBUMIN/GLOBULIN RATIO 1.3 (1.1-1.5); ALKALINE PHOSPHATASE 63 IU/L (46-116); ANION GAP 8 (8-16); ASPARTATE AMINO TRANSFERASE 31 U/L (10-37); BILIRUBIN,TOTAL 2.5 MG/DL (0.1-1.0); BLOOD UREA NITROGEN 23 MG/DL (7-18); BUN/CREATININE RATIO 17.2 (5.4-32.0); CALCIUM 8.3 MG/DL (8.5-10.1); CHLORIDE 110 MMOL/L (99-107); CREATININE 1.34 MG/DL (0.60-1.10); GLUCOSE 126 MG/DL (70-104); MAGNESIUM 2.6 MG/DL (1.5-2.4); PHOSPHORUS 3.8 MG/DL (2.3-4.5); POTASSIUM 4.8 MMOL/L (3.5-5.1); SODIUM 142 MMOL/L (135-145); TOTAL CARBON DIOXIDE 23.6 MMOL/L (24-32); TOTAL PROTEIN 5.7 G/DL (6.4-8.2); eGFR 53 ML/MIN
[2017-05-29] MEDS: metoprolol tartrate 12.5mg (1/2 tablet) PO SCH ×2 (08:10→20:40)
[2017-05-29] MEDS: aspirin 325mg tablet, delayed-release (Ecotrin) PO SCH (08:10)
[2017-05-29] MEDS: docusate sod 100mg capsule PO SCH ×2 (08:11→20:40)
[2017-05-29] MEDS: vancomycin/NS 1 GM ADD-VANTAGE 250 ML IV SCH ×2 (08:11→20:39)
[2017-05-29] MEDS: mupirocin 2% ointment 22GM NS SCH ×2 (08:11→20:39)
[2017-05-29] MEDS: pantoprazole 40mg Tablet.DR PO SCH (08:11)
[2017-05-29] MEDS: atorvastatin 10mg tablet PO SCH (08:11)
[2017-05-29] MEDS: insulin Lispro (HumaLOG) vial - multi-dose SQ SCH ×3 (09:00→18:00)
[2017-05-29] MEDS: morphine 4 MG/ML inj SYRINge IV PRN (20:32)
[2017-05-30] VITALS (24 sets, daily range): BP systolic 88–136; BP diastolic 59–80
[2017-05-30 03:42] LABS: BASOPHILS % (AUTO) 0.3 % (0-1); EOSINOPHILS # (AUTO) 0.2 X10'3 (0-0.9); EOSINOPHILS % (AUTO) 2.1 % (0-6); HEMATOCRIT 26.1 % (42.0-52.0); LYMPHOCYTES # (AUTO) 1.4 X10'3 (1.1-4.8); LYMPHOCYTES % (AUTO) 14.5 % (21-51); MEAN CORPUSCULAR HEMOGLOBIN 29.5 PG (27.0-31.0); MEAN CORPUSCULAR HGB CONC 34.6 % (33.0-36.5); MEAN CORPUSCULAR VOLUME 85.3 FL (78-98); MEAN PLATELET VOLUME 9.6 FL (7.4-10.4); MONOCYTES # (AUTO) 0.7 X10'3 (0-0.9); MONOCYTES % (AUTO) 7.1 % (2-12); NEUTROPHILS # (AUTO) 7.5 X10'3 (1.8-7.7); PLATELET COUNT 174 X10'3 (140-440); RED BLOOD COUNT 3.06 X10'6 (4.70-6.10); RED CELL DISTRIBUTION WIDTH 14.1 % (11.5-14.5); WHITE BLOOD COUNT 9.8 X10'3 (4.5-11.0)
[2017-05-30 03:59] LABS: ALBUMIN 3.1 G/DL (3.4-5.0); ANION GAP 7 (8-16); BLOOD UREA NITROGEN 27 MG/DL (7-18); BUN/CREATININE RATIO 19.9 (5.4-32.0); CALCIUM 8.5 MG/DL (8.5-10.1); CHLORIDE 106 MMOL/L (99-107); CREATININE 1.36 MG/DL (0.60-1.10); GLUCOSE 174 MG/DL (70-104); MAGNESIUM 2.2 MG/DL (1.5-2.4); PHOSPHORUS 3.7 MG/DL (2.3-4.5); POTASSIUM 4.5 MMOL/L (3.5-5.1); SODIUM 140 MMOL/L (135-145); TOTAL CARBON DIOXIDE 27.4 MMOL/L (24-32); eGFR 52 ML/MIN
[2017-05-30] MEDS: morphine 4 MG/ML inj SYRINge IV PRN (05:15)
[2017-05-30] MEDS: pantoprazole 40mg Tablet.DR PO SCH (08:02)
[2017-05-30] MEDS: metoprolol tartrate 25mg tablet PO SCH ×2 (08:03→19:29)
[2017-05-30] MEDS: aspirin 325mg tablet, delayed-release (Ecotrin) PO SCH (08:03)
[2017-05-30] MEDS: mupirocin 2% ointment 22GM NS SCH (08:03)
[2017-05-30] MEDS: atorvastatin 10mg tablet PO SCH (08:03)
[2017-05-30] MEDS: docusate sod 100mg capsule PO SCH ×2 (08:03→19:29)
[2017-05-30] MEDS: sodium chloride 0.45% 1,000 ML IV SCH (11:37)
[2017-05-30] MEDS: HYDROcodone/acetaminophen 10/325mg tab PO PRN ×2 (13:04→19:29)
[2017-05-31] VITALS (20 sets, daily range): BP systolic 98–128; BP diastolic 60–76
[2017-05-31] MEDS: HYDROcodone/acetaminophen 10/325mg tab PO PRN ×5 (03:19→22:20)
[2017-05-31 03:54] LABS: BASOPHILS % (AUTO) 0.2 % (0-1); EOSINOPHILS # (AUTO) 0.2 X10'3 (0-0.9); EOSINOPHILS % (AUTO) 2.7 % (0-6); HEMATOCRIT 25.5 % (42.0-52.0); HEMOGLOBIN 8.8 g/dl (14.0-17.9); LYMPHOCYTES # (AUTO) 1.8 X10'3 (1.1-4.8); LYMPHOCYTES % (AUTO) 21.6 % (21-51); MEAN CORPUSCULAR HEMOGLOBIN 29.3 PG (27.0-31.0); MEAN CORPUSCULAR HGB CONC 34.4 % (33.0-36.5); MEAN CORPUSCULAR VOLUME 85.2 FL (78-98); MEAN PLATELET VOLUME 9.6 FL (7.4-10.4); MONOCYTES # (AUTO) 0.6 X10'3 (0-0.9); MONOCYTES % (AUTO) 7.1 % (2-12); NEUTROPHILS # (AUTO) 5.7 X10'3 (1.8-7.7); NEUTROPHILS % (AUTO) 68.4 % (42-75); PLATELET COUNT 165 X10'3 (140-440); RED BLOOD COUNT 2.99 X10'6 (4.70-6.10); RED CELL DISTRIBUTION WIDTH 14.2 % (11.5-14.5); WHITE BLOOD COUNT 8.3 X10'3 (4.5-11.0)
[2017-05-31 04:13] LABS: ALBUMIN 2.9 G/DL (3.4-5.0); ANION GAP 8 (8-16); BLOOD UREA NITROGEN 26 MG/DL (7-18); CALCIUM 8.4 MG/DL (8.5-10.1); CHLORIDE 105 MMOL/L (99-107); CREATININE 1.18 MG/DL (0.60-1.10); GLUCOSE 139 MG/DL (70-104); PHOSPHORUS 3.6 MG/DL (2.3-4.5); POTASSIUM 4.1 MMOL/L (3.5-5.1); SODIUM 141 MMOL/L (135-145); TOTAL CARBON DIOXIDE 27.9 MMOL/L (24-32); eGFR 61 ML/MIN
[2017-05-31] MEDS: aspirin 325mg tablet, delayed-release (Ecotrin) PO SCH (07:05)
[2017-05-31] MEDS: metoprolol tartrate 25mg tablet PO SCH ×2 (07:05→20:34)
[2017-05-31] MEDS: pantoprazole 40mg Tablet.DR PO SCH (07:05)
[2017-05-31] MEDS: atorvastatin 10mg tablet PO SCH (07:05)
[2017-05-31] MEDS: docusate sod 100mg capsule PO SCH ×2 (07:06→20:34)
[2017-05-31] MEDS ORDERED: furosemide 40mg/4ml inj IV ONE (10:00)
[2017-05-31] MEDS ORDERED: magnesium hydroxide 30ml (MOM) UD suspension PO ONE (10:00)
[2017-05-31] MEDS: doxazosin mesylate 2mg tablet PO SCH (20:34)
[2017-05-31] MEDS ORDERED: amiodarone 150mg/dext, iso-os 100 ML IV ONE (21:30)
[2017-05-31] MEDS: amiodarone/D5 360MG/200ML BAG 200 ML IV SCH (22:18)
[2017-06-01] VITALS (16 sets, daily range): BP systolic 94–131; BP diastolic 49–92
[2017-06-01] MEDS: HYDROcodone/acetaminophen 10/325mg tab PO PRN ×3 (03:09→21:58)
[2017-06-01] MEDS: amiodarone/D5 360MG/200ML BAG 200 ML IV SCH (03:46)
[2017-06-01 07:20] LABS: BASOPHILS % (AUTO) 0.2 % (0-1); EOSINOPHILS # (AUTO) 0.2 X10'3 (0-0.9); EOSINOPHILS % (AUTO) 2.8 % (0-6); HEMATOCRIT 27.9 % (42.0-52.0); HEMOGLOBIN 9.5 g/dl (14.0-17.9); LYMPHOCYTES # (AUTO) 1.7 X10'3 (1.1-4.8); MEAN CORPUSCULAR HEMOGLOBIN 29.1 PG (27.0-31.0); MEAN CORPUSCULAR HGB CONC 34.2 % (33.0-36.5); MEAN CORPUSCULAR VOLUME 85.1 FL (78-98); MEAN PLATELET VOLUME 9.2 FL (7.4-10.4); MONOCYTES # (AUTO) 0.5 X10'3 (0-0.9); NEUTROPHILS # (AUTO) 4.7 X10'3 (1.8-7.7); PLATELET COUNT 175 X10'3 (140-440); RED BLOOD COUNT 3.27 X10'6 (4.70-6.10); RED CELL DISTRIBUTION WIDTH 14.4 % (11.5-14.5); WHITE BLOOD COUNT 7.1 X10'3 (4.5-11.0)
[2017-06-01] MEDS: pantoprazole 40mg Tablet.DR PO SCH (07:26)
[2017-06-01] MEDS: docusate sod 100mg capsule PO SCH ×2 (07:26→19:05)
[2017-06-01] MEDS: atorvastatin 10mg tablet PO SCH (07:26)
[2017-06-01] MEDS: aspirin 325mg tablet, delayed-release (Ecotrin) PO SCH (07:26)
[2017-06-01 07:35] LABS: ANION GAP 9 (8-16); BLOOD UREA NITROGEN 29 MG/DL (7-18); BUN/CREATININE RATIO 23.6 (5.4-32.0); CALCIUM 8.5 MG/DL (8.5-10.1); CHLORIDE 103 MMOL/L (99-107); CREATININE 1.23 MG/DL (0.60-1.10); GLUCOSE 140 MG/DL (70-104); MAGNESIUM 2.3 MG/DL (1.5-2.4); PHOSPHORUS 3.8 MG/DL (2.3-4.5); POTASSIUM 3.9 MMOL/L (3.5-5.1); SODIUM 141 MMOL/L (135-145); TOTAL CARBON DIOXIDE 28.6 MMOL/L (24-32); eGFR 58 ML/MIN
[2017-06-01] MEDS: sodium chloride 0.45% 1,000 ML IV SCH (07:37)
[2017-06-01] MEDS: metoprolol tartrate 25mg tablet PO SCH ×2 (08:00→19:05)
[2017-06-01] MEDS: amiodarone 200mg tablet PO SCH ×2 (11:08→19:05)
[2017-06-01] MEDS: doxazosin mesylate 2mg tablet PO SCH (20:58)
[2017-06-02 03:00] VITALS: BP 108/58
[2017-06-02 05:50] LABS: MAGNESIUM 2.3 MG/DL (1.5-2.4); PHOSPHORUS 3.1 MG/DL (2.3-4.5)
[2017-06-02 06:00] VITALS: BP 116/62
[2017-06-02] MEDS ORDERED: magnesium citrate 296ml oral solution PO ONE (08:25)
[2017-06-02] MEDS: aspirin 325mg tablet, delayed-release (Ecotrin) PO SCH (08:50)
[2017-06-02] MEDS: docusate sod 100mg capsule PO SCH (08:50)
[2017-06-02] MEDS: metoprolol tartrate 25mg tablet PO SCH (08:50)
[2017-06-02] MEDS: atorvastatin 10mg tablet PO SCH (08:50)
[2017-06-02] MEDS: amiodarone 200mg tablet PO SCH (08:50)
[2017-06-02] MEDS: pantoprazole 40mg Tablet.DR PO SCH (08:57)
[2017-06-02 11:00] VITALS: BP 121/72
[2017-06-02] MEDS ORDERED: HYDR-3972 PO (12:05)
[2017-06-02] MEDS ORDERED: METO25TA6 PO (12:05)
[2017-06-02] MEDS ORDERED: AMIO200T57 PO (12:05)
[2017-06-02] MEDS ORDERED: COL100C PO (12:05)
[2017-06-02] MEDS: HYDROcodone/acetaminophen 10/325mg tab PO PRN (14:35)
[2017-06-02 15:00] VITALS: BP 123/68
== END 2017-06-02 17:40 | disposition home health service (06) | DRG 233 ==
LOC: ER 11:39 → ED HOLD 13:10 → OBSVTOIN 13:10 → ED HOLD 13:43 → EDBEDREQ 15:12 → PCU 3S 16:10 → CICU 2S 05-28 08:42 → PCU 3S 05-31 11:43
PROVIDERS: ADMIT Internal Medicine; ATTEND Thoracic Surgery (Cardiothoracic Vascular Surgery)
PROC: 4A023N7 Measurement of Cardiac Sampling and Pressure, Left Heart, Percutaneous Approach (ICD-10-PCS; principal; 2017-05-20)
PROC: B2111ZZ Fluoroscopy of Multiple Coronary Arteries using Low Osmolar Contrast (ICD-10-PCS; 2017-05-20)
PROC: B2151ZZ Fluoroscopy of Left Heart using Low Osmolar Contrast (ICD-10-PCS; 2017-05-20)
PROC: B2181ZZ Fluoroscopy of Left Internal Mammary Bypass Graft using Low Osmolar Contrast (ICD-10-PCS; 2017-05-20)
PROC: 02100Z9 Bypass Coronary Artery, One Artery from Left Internal Mammary, Open Approach (ICD-10-PCS; 2017-05-28)
PROC: 021109W Bypass Coronary Artery, Two Arteries from Aorta with Autologous Venous Tissue, Open Approach (ICD-10-PCS; 2017-05-28)
PROC: 06BQ4ZZ Excision of Left Saphenous Vein, Percutaneous Endoscopic Approach (ICD-10-PCS; 2017-05-28)
PROC: 30233N1 Transfusion of Nonautologous Red Blood Cells into Peripheral Vein, Percutaneous Approach (ICD-10-PCS; 2017-05-28)
PROC: B24BZZ4 Ultrasonography of Heart with Aorta, Transesophageal (ICD-10-PCS; 2017-05-28)
PROC: 5A1221Z Performance of Cardiac Output, Continuous (ICD-10-PCS; 2017-05-28)
PROC: 02HV33Z Insertion of Infusion Device into Superior Vena Cava, Percutaneous Approach (ICD-10-PCS; 2017-05-28)
DX: I21.4 Non-ST elevation (NSTEMI) myocardial infarction (principal); I50.33 Acute on chronic diastolic (congestive) heart failure; I48.91 Unspecified atrial fibrillation; E66.01 Morbid (severe) obesity due to excess calories; E86.0 Dehydration; E11.9 Type 2 diabetes mellitus without complications; E78.5 Hyperlipidemia, unspecified; M19.90 Unspecified osteoarthritis, unspecified site; N28.9 Disorder of kidney and ureter, unspecified; I11.0 Hypertensive heart disease with heart failure; S30.1XXA Contusion of abdominal wall, initial encounter; I25.110 Atherosclerotic heart disease of native coronary artery with unstable angina pectoris; Z96.641 Presence of right artificial hip joint; Z96.653 Presence of artificial knee joint, bilateral; Z79.899 Other long term (current) drug therapy; Z87.891 Personal history of nicotine dependence; Z68.36 Body mass index [BMI] 36.0-36.9, adult; X58.XXXA Exposure to other specified factors, initial encounter; Y93.89 Activity, other specified; Y92.238 Other place in hospital as the place of occurrence of the external cause; Y99.8 Other external cause status
CPT/HCPCS: 0232T; 93306; 93312; 93325; 93458; 99285; 36415; 36600; 71045; 71046; 80048; 80053; 80061; 82330; 82435; 82803; 82947; 82948; 83036; 83735; 84100; 84132; 84295; 84484; 85018; 85025; 85347; 85384; 85610; 85730; 86885; 86900; 86901; 86920; 87070; 93005; 93880; 93926; 93971; 94002; 94010; 94760; 97110; 97116; 97161; 97530; 99152; 99153; A4620; A6213; A6255; A6257; A6258; A6402; A6449; A7000; A7048; A9272; C1713; C1751; C1769; C1776; J0282; J0690; J1265; J1644; J1650; J1815; J1940; J2001; J2060; J2150; J2250; J2270; J2370; J2405; J2440; J2720; J2930; J3010; J3370; J3475; J3480; J3490; J7030; J7120; P9016; P9045; P9047; Q9967

== ENCOUNTER 2018-10-26 09:32 | Emergency (ER) | payer MEDICARE ==
[~2018-10-26] VITALS: Ht 175.3 cm; Wt 109.1 kg
[~2018-10-26 09:32] MED LIST changes: +AMIO200T61 PO; +ASPI-1265 PO; +COL100C PO; +HYDR-3972 PO; -LISI-600 PO; +METO25TA6 PO; -TEST200V10 IM
[2018-10-26 10:04] LABS: CLARITY,URINE CLOUDY (Clear); COLOR,URINE YELLOW (Yellow); GLUCOSE, URINE NEGATIVE (Neg); KETONES,URINE TRACE mg/dl (Neg); LEUKOCYTE ESTERASE ,URINE NEGATIVE (Neg); NITRITES, URINE NEGATIVE (Neg); OCCULT BLOOD,URINE LARGE (Neg); PH,URINE 5.5 (4.8-8.0); PROTEIN,URINE 100 mg/dl (Neg)
[2018-10-26 10:05] LABS: UA COLLECTION TYPE CLN CATCH MIDSTREAM
[2018-10-26 10:14] LABS: RBC,URINE TNTC /HPF (0-2); WBC,URINE 30-50 /HPF (0-4)
[2018-10-26 10:15] LABS: BACTERIA,URINE 2+ /HPF (Neg); MUCUS STRANDS NONE SEEN /LPF (Neg); SQUAMOUS EPITHELIAL CELL,UR MODERATE /LPF (FEW)
[2018-10-26 10:43] LABS: BASOPHILS % (AUTO) 0.2 % (0-1); EOSINOPHILS # (AUTO) 0.2 X10'3 (0-0.9); EOSINOPHILS % (AUTO) 3.9 % (0-6); HEMATOCRIT 45.5 % (42.0-52.0); HEMOGLOBIN 15.1 g/dl (14.0-17.9); LYMPHOCYTES # (AUTO) 0.7 X10'3 (1.1-4.8); LYMPHOCYTES % (AUTO) 14.4 % (21-51); MEAN CORPUSCULAR HEMOGLOBIN 28.1 PG (27.0-31.0); MEAN CORPUSCULAR HGB CONC 33.2 g/dL (33.0-36.5); MEAN CORPUSCULAR VOLUME 84.5 FL (78-98); MEAN PLATELET VOLUME 9.2 FL (7.4-10.4); MONOCYTES # (AUTO) 0.6 X10'3 (0-0.9); MONOCYTES % (AUTO) 11.2 % (2-12); NEUTROPHILS # (AUTO) 3.5 X10'3 (1.8-7.7); NEUTROPHILS % (AUTO) 70.3 % (42-75); PLATELET COUNT 132 X10'3 (140-440); RED BLOOD COUNT 5.38 X10'6 (4.70-6.10); RED CELL DISTRIBUTION WIDTH 13.8 % (11.5-14.5)
[2018-10-26 10:46] LABS: ALANINE AMINOTRANSFERASE 41 U/L (12-78); ALBUMIN 4.1 G/DL (3.4-5.0); ALBUMIN/GLOBULIN RATIO 1.2 (1.1-1.5); ALKALINE PHOSPHATASE 129 IU/L (46-116); ANION GAP 11 (8-16); ASPARTATE AMINO TRANSFERASE 22 U/L (10-37); BILIRUBIN,TOTAL 1.3 MG/DL (0.1-1.0); BLOOD UREA NITROGEN 22 MG/DL (7-18); BUN/CREATININE RATIO 12.6 (5.4-32.0); CALCIUM 8.9 MG/DL (8.5-10.1); CHLORIDE 103 MMOL/L (99-107); CREATININE 1.74 MG/DL (0.60-1.10); GLUCOSE 93 MG/DL (70-104); SODIUM 136 MMOL/L (135-145); TOTAL CARBON DIOXIDE 21.7 MMOL/L (24-32); TOTAL PROTEIN 7.6 G/DL (6.4-8.2); eGFR 39 ML/MIN
[2018-10-26] MEDS ORDERED: CefTRIAXone 2gm/D5W 50ml 50 ML IV ONE (10:55)
[2018-10-26] MEDS ORDERED: normal saline 1000ML IV soln IVB ONE (10:55)
[2018-10-26] MEDS ORDERED: ondansetron/PF 4mg/2ml inj IV ONE (11:10)
[2018-10-26 12:16] VITALS: BP 122/74
[2018-10-26] MEDS ORDERED: phenazopyridine 100mg tablet PO ONE (12:20)
[2018-10-26] MEDS ORDERED: PHEN-786 PO (12:21)
[2018-10-26] MEDS ORDERED: CEPH500C5 PO (12:21)
== END 2018-10-26 12:49 | disposition home or self-care (01) ==
LOC: ER 09:33
DX: N39.0 Urinary tract infection, site not specified (principal); I10 Essential (primary) hypertension; Z79.82 Long term (current) use of aspirin; Z79.899 Other long term (current) drug therapy
CPT/HCPCS: 36415; 80053; 81001; 82948; 85025; 85610; 87088; 96365; 96375; 99284; J0696; J2405; J7030

== ENCOUNTER 2021-10-09 13:21 | Day surgery (SDC) | payer MEDICARE ==
[~2021-10-09] VITALS: Ht 177.8 cm; Wt 123.8 kg
[2021-10-09] VITALS (8 sets, daily range): BP systolic 112–142; BP diastolic 54–75
[~2021-10-09 13:21] MED LIST changes: +LOP25T PO; -METO25TA6 PO; +PHEN-786 PO
[2021-10-09] MEDS ORDERED: LORazepam 0.5 MG tablet PO PRN (13:40)
[2021-10-09] MEDS ORDERED: normal saline 1,000 ML IV SCH (13:40)
[2021-10-09] MEDS ORDERED: diphenhydrAMINE 25mg capsule PO PRN (13:40)
[2021-10-09 14:41] LABS: BASOPHILS % (AUTO) 0.3 % (0-1); EOSINOPHILS # (AUTO) 0.1 X10'3 (0-0.9); EOSINOPHILS % (AUTO) 1.1 % (0-6); HEMATOCRIT 36.1 % (42.0-52.0); LYMPHOCYTES # (AUTO) 1.6 X10'3 (1.1-4.8); LYMPHOCYTES % (AUTO) 32.2 % (21-51); MEAN CORPUSCULAR HEMOGLOBIN 28.8 PG (27.0-31.0); MEAN CORPUSCULAR HGB CONC 33.2 g/dL (33.0-36.5); MEAN CORPUSCULAR VOLUME 86.8 FL (78-98); MEAN PLATELET VOLUME 10.5 FL (7.4-10.4); MONOCYTES # (AUTO) 0.3 X10'3 (0-0.9); MONOCYTES % (AUTO) 6.6 % (2-12); NEUTROPHILS # (AUTO) 2.9 X10'3 (1.8-7.7); NEUTROPHILS % (AUTO) 59.8 % (42-75); PLATELET COUNT 89 X10'3 (140-440); RED BLOOD COUNT 4.16 X10'6 (4.70-6.10); RED CELL DISTRIBUTION WIDTH 14.4 % (11.5-14.5); WHITE BLOOD COUNT 4.9 X10'3 (4.5-11.0)
[2021-10-09 14:49] LABS: APTT 27 SECONDS (22-32)
[2021-10-09 14:53] LABS: PLATELET ESTIMATE DECREASED
[2021-10-09 14:54] LABS: LARGE PLATELETS FEW
[2021-10-09 14:56] LABS: ALBUMIN 3.6 G/DL (3.4-5.0); ANION GAP 8 (8-16); BLOOD UREA NITROGEN 27 MG/DL (7-18); BUN/CREATININE RATIO 18.4 (5.4-32.0); CALCIUM 8.3 MG/DL (8.5-10.1); CHLORIDE 107 MMOL/L (99-107); CREATININE 1.47 MG/DL (0.60-1.10); GLUCOSE 95 MG/DL (70-104); POTASSIUM 3.8 MMOL/L (3.5-5.1); SODIUM 140 MMOL/L (135-145); TOTAL CARBON DIOXIDE 25.1 MMOL/L (24-32); eGFR 47 ML/MIN
[2021-10-09] MEDS ORDERED: METO-395 PO (14:56)
[2021-10-09] MEDS ORDERED: ISOS30TA84 PO (14:56)
[2021-10-09] MEDS ORDERED: GLIP5TAB13 PO (14:56)
[2021-10-09] MEDS ORDERED: NITR0.4T48 (14:56)
[2021-10-09] MEDS ORDERED: ATOR40TA72 PO (14:56)
[2021-10-09] MEDS ORDERED: PIOG30TA71 PO (14:56)
[2021-10-09] MEDS ORDERED: LISI20TA28 PO (14:56)
[2021-10-09] MEDS ORDERED: AMYL1CAP57 PO (14:56)
[2021-10-09] MEDS ORDERED: LIDOcaine 1%/PF 5ML 10 MG/ML VIAL ONE ×2 (16:28→16:42)
[2021-10-09] MEDS ORDERED: midazolam 1 mg/ML 2ml injection ONE (16:28)
[2021-10-09] MEDS ORDERED: verapamil 2.5 mg/ml inj IV ONE (16:28)
[2021-10-09] MEDS ORDERED: heparin 1,000unit/ml 10ml vial 0 ML ONE (16:29)
[2021-10-09] MEDS ORDERED: fentaNYL/PF 50MCG/1 ML 2ML syringe ONE (16:29)
[2021-10-09] MEDS ORDERED: nitroGLYCERIN-Tridil 50MG/D5W 0 ML IV ONE (16:29)
[2021-10-09] MEDS ORDERED: iohexol 350MG/ML 100ml bottle IV ONE (16:29)
[2021-10-09] MEDS ORDERED: HYDROcodone/acetaminophen 10/325mg tab PO PRN (17:55)
[2021-10-09] MEDS ORDERED: HYDROcodone/acetaminophen 5mg/325mg tablet PO PRN (17:55)
== END 2021-10-09 19:45 | disposition home or self-care (01) ==
LOC: SSTAY O 13:21
PROVIDERS: ATTEND Student in an Organized Health Care Education/Training Program
DX: I25.110 Atherosclerotic heart disease of native coronary artery with unstable angina pectoris (principal); I10 Essential (primary) hypertension; E78.5 Hyperlipidemia, unspecified; E11.9 Type 2 diabetes mellitus without complications; Z79.01 Long term (current) use of anticoagulants; G47.33 Obstructive sleep apnea (adult) (pediatric); I25.2 Old myocardial infarction; I48.91 Unspecified atrial fibrillation; Z79.899 Other long term (current) drug therapy; Z98.890 Other specified postprocedural states
CPT/HCPCS: 36415; 80048; 85025; 85610; 85730; 93005; 93459; 99152; C1760; C1769; C1894; J1644; J2250; J3010; J3490; J7030; Q0163; Q9967; 85008; A4620; A6258

== ENCOUNTER 2021-10-10 15:35 | Emergency (ER) | payer MEDICARE ==
[~2021-10-10] VITALS: Ht 177.8 cm; Wt 122.7 kg
[~2021-10-10 15:35] MED LIST changes: -AMIO200T61 PO; +AMYL1CAP57 PO; +ATOR40TA72 PO; -COL100C PO; +GLIP5TAB13 PO; -HYDR-3972 PO; +ISOS30TA84 PO; +LISI20TA28 PO; -LOP25T PO; +METO-395 PO; +NITR0.4T48; -PHEN-786 PO; +PIOG30TA71 PO; -PRAV20TA4 PO
[2021-10-10 15:43] VITALS: BP 122/63
--- NOTE | 2021-10-10 17:55 | NUR ---
Pt DRSG of R groin was removed during vascular study. Site is not bleeding and received VO from Dr. Fregoso no need for application of drsg.
== END 2021-10-10 18:14 | disposition home or self-care (01) ==
LOC: ER 15:36
DX: Z95.820 Peripheral vascular angioplasty status with implants and grafts (principal); Z71.1 Person with feared health complaint in whom no diagnosis is made
CPT/HCPCS: 93926; 99284

== ENCOUNTER 2022-01-31 10:59 | Emergency (ER) | payer MEDICARE ==
[~2022-01-31] VITALS: Ht 177.8 cm; Wt 127.3 kg
[2022-01-31 11:40] LABS: BASOPHILS % (AUTO) 0.3 % (0-1); EOSINOPHILS # (AUTO) 0.1 X10'3 (0-0.9); EOSINOPHILS % (AUTO) 1.3 % (0-6); HEMATOCRIT 38.4 % (42.0-52.0); HEMOGLOBIN 12.5 g/dl (14.0-17.9); LYMPHOCYTES # (AUTO) 1.5 X10'3 (1.1-4.8); LYMPHOCYTES % (AUTO) 27.1 % (21-51); MEAN CORPUSCULAR HEMOGLOBIN 28.7 PG (27.0-31.0); MEAN CORPUSCULAR HGB CONC 32.5 g/dL (33.0-36.5); MEAN CORPUSCULAR VOLUME 88.3 FL (78-98); MEAN PLATELET VOLUME 10.1 FL (7.4-10.4); MONOCYTES # (AUTO) 0.6 X10'3 (0-0.9); MONOCYTES % (AUTO) 10.3 % (2-12); NEUTROPHILS # (AUTO) 3.4 X10'3 (1.8-7.7); PLATELET COUNT 89 X10'3 (140-440); RED BLOOD COUNT 4.35 X10'6 (4.70-6.10); RED CELL DISTRIBUTION WIDTH 14.4 % (11.5-14.5); WHITE BLOOD COUNT 5.5 X10'3 (4.5-11.0)
[2022-01-31 12:00] LABS: ALANINE AMINOTRANSFERASE 35 U/L (12-78); ALBUMIN 3.6 G/DL (3.4-5.0); ALBUMIN/GLOBULIN RATIO 1.1 (1.1-1.5); ALKALINE PHOSPHATASE 103 IU/L (46-116); ASPARTATE AMINO TRANSFERASE 26 U/L (10-37); BILIRUBIN,TOTAL 1.4 MG/DL (0.1-1.0); BLOOD UREA NITROGEN 20 MG/DL (7-18); BUN/CREATININE RATIO 12.7 (5.4-32.0); CALCIUM 8.6 MG/DL (8.5-10.1); CHLORIDE 105 MMOL/L (99-107); CREATININE 1.57 MG/DL (0.60-1.10); GLUCOSE 168 MG/DL (70-104); POTASSIUM 3.7 MMOL/L (3.5-5.1); TOTAL CARBON DIOXIDE 26.7 MMOL/L (24-32); eGFR 43 ML/MIN
[2022-01-31 12:15] LABS: ANION GAP 8 (8-16); SODIUM 140 MMOL/L (135-145)
[2022-01-31 12:42] LABS: LARGE PLATELETS FEW; PLATELET ESTIMATE DECREASED
[2022-01-31] MEDS ORDERED: furosemide 10 MG/1 ML 10ml inj IV ONE (13:25)
[2022-01-31] MEDS ORDERED: FURO-150 PO (15:09)
[2022-01-31 16:42] VITALS: BP 139/84
== END 2022-01-31 16:48 | disposition home or self-care (01) ==
LOC: ER 10:59
DX: I50.33 Acute on chronic diastolic (congestive) heart failure (principal); Z20.822 Contact with and (suspected) exposure to COVID-19; I11.0 Hypertensive heart disease with heart failure; R50.9 Fever, unspecified; R06.02 Shortness of breath; R05.9 Cough, unspecified; R51.9 Headache, unspecified; I25.10 Atherosclerotic heart disease of native coronary artery without angina pectoris; E11.9 Type 2 diabetes mellitus without complications; Z95.1 Presence of aortocoronary bypass graft; Z79.82 Long term (current) use of aspirin; Z79.899 Other long term (current) drug therapy
CPT/HCPCS: 36415; 71045; 80053; 83880; 84145; 84484; 85008; 85025; 87502; 87503; 87635; 93005; 96374; 99285; C9803; J1940

== ENCOUNTER 2022-04-23 08:19 | Inpatient (IN) | payer MEDICARE ==
[2022-04-17 16:43] LABS: BASOPHILS % (AUTO) 0.7 % (0-1); EOSINOPHILS # (AUTO) 0.1 X10'3 (0-0.9); EOSINOPHILS % (AUTO) 1.2 % (0-6); LYMPHOCYTES # (AUTO) 1.9 X10'3 (1.1-4.8); LYMPHOCYTES % (AUTO) 40.3 % (21-51); MEAN CORPUSCULAR HEMOGLOBIN 28.9 PG (27.0-31.0); MEAN CORPUSCULAR HGB CONC 32.8 g/dL (33.0-36.5); MEAN PLATELET VOLUME 10.2 FL (7.4-10.4); MONOCYTES # (AUTO) 0.3 X10'3 (0-0.9); MONOCYTES % (AUTO) 7.1 % (2-12); NEUTROPHILS # (AUTO) 2.4 X10'3 (1.8-7.7); NEUTROPHILS % (AUTO) 50.7 % (42-75); PRE OP HEMATOCRIT 37.6 % (42.0-52.0); PRE OP HEMOGLOBIN 12.3 g/dL (14.0-17.9); RED BLOOD COUNT 4.27 X10'6 (4.70-6.10); RED CELL DISTRIBUTION WIDTH 14.6 % (11.5-14.5)
[2022-04-17 17:00] LABS: ALBUMIN 3.9 G/DL (3.4-5.0); ALBUMIN/GLOBULIN RATIO 1.2 (1.1-1.5); ALKALINE PHOSPHATASE 120 IU/L (46-116); BLOOD UREA NITROGEN 26 MG/DL (7-18); BUN/CREATININE RATIO 17.4 (5.4-32.0); CALCIUM 9.1 MG/DL (8.5-10.1); CHLORIDE 107 MMOL/L (99-107); CREATININE 1.49 MG/DL (0.60-1.10); PRE OP ALT 32 U/L (30-65); PRE OP ANION GAP 8 (8-16); PRE OP AST 21 U/L (10-37); PRE OP BILIRUB, TOTAL 1.3 MG/DL (0.0-1.0); PRE OP GLUCOSE 170 MG/DL (70-104); PRE OP POTASSIUM 4.2 MMOL/L (3.4-5.1); PRE OP SODIUM 142 MMOL/L (135-145); TOTAL CARBON DIOXIDE 27.5 MMOL/L (24-32); TOTAL PROTEIN 7.2 G/DL (6.4-8.2); eGFR 46 ML/MIN
[2022-04-17 17:17] LABS: PRE OP PLATELET COUNT 98 X10'3 (140-440)
[~2022-04-23] VITALS: Ht 177.8 cm; Wt 126.7 kg
[2022-04-23] VITALS (24 sets, daily range): BP systolic 107–172; BP diastolic 51–80
[2022-04-23] MEDS: potassium cl 20mEq in 1/2 NS 1,000 ML IV SCH ×3 (06:55→23:46)
[~2022-04-23 08:19] MED LIST changes: -AMYL1CAP57 PO; +DEXTROSE 15 GM of carb/4 tabs (each vial/BOTTLE has 4 tablets) PO PRN; +DOCUMENT DATE & TIME OF BETA-BLOCKER PO ONE; +HYDROcodone/acetaminophen 10/325mg tab PO PRN; +HYDROmorphone 1 mg/ml syringe IV PRN; +HYDROmorphone inj. 0.5 MG/0.5 ML DISP.SYRIN IV PRN; +MESSAGE TO PHARMACY PO ONE; -NITR0.4T48; -PIOG30TA71 PO; +PIOG45TA65 PO; +acetaminophen 325mg tablet PO ONE; +bisacodyl 10mg suppository rectal RC PRN; +ceFAZolin inj. 3,000 MG in normal saline 100ml IV soln 100 ML IV ONE; +celeCOXIB 100mg capsule PO ONE; +dextrose 50%-water 50ml dispensing syringe IV PRN; +diphenhydrAMINE 25mg capsule PO PRN; +famotidine 20mg tablet PO ONE; +gabapentin 300mg capsule PO ONE; +glucagon, human recombinant 1mg kit SUBCUT PRN; +magnesium hydroxide 30ml (MOM) UD suspension PO PRN; +metoclopramide 5 mg/ml inj IV ONE; +naloxone 0.4 mg/ml inj IV PRN; +ondansetron/PF 4mg/2ml inj IV PRN; +oxyCODONE SR 10mg (sust. release) tab -2 tabs (20mg) PO ONE; +ringers solution, lacted 1,000 ML IV SCH; +tranexamic acid inj. 1,000 MG in normal saline IV soln 100ML IV ONE; +vancomycin 1,500 MG in NS 300ml IV soln IV ONE
--- NOTE | 2022-04-23 09:30 | NUR ---
PT ABLE TO COMPLETE ALL 5 SHOWERS, NO OINTMENT ORDERED-PER DR. WALKER, CSM PRESENT TO WALDO BALBUENA, PT DID NOT REVIEW AVAILABLE RESOURCES RE: JOIN REPLACEMENT
[2022-04-23] MEDS ORDERED: ROPIVAcaine inj 250 MG, CloNIDine/PF inj 80 MCG, epiNEPHrine inj 0.5 MG in normal salin... IV STA (10:31)
[2022-04-23] MEDS ORDERED: vancomycin 1,000mg inj ONE (11:19)
[2022-04-23] MEDS ORDERED: labetalol 20mg/4ml (5mg/ml) syringe IV PRN (11:20)
[2022-04-23] MEDS ORDERED: ringers solution, lacted 1,000 ML IV SCH (11:20)
[2022-04-23] MEDS ORDERED: ROPIVAcaine 0.2% (10 MG/5 ML) BOLUS INJECTION ADDCANAL PRN (11:20)
[2022-04-23] MEDS ORDERED: fentaNYL/PF 50MCG/1 ML 2ML syringe IV PRN ×2 (11:20)
[2022-04-23] MEDS ORDERED: ondansetron/PF 4mg/2ml inj IV PRN (11:20)
[2022-04-23] MEDS ORDERED: morphine 2 MG/ML inj. syringe IV PRN (11:20)
[2022-04-23] MEDS ORDERED: morphine 4 MG/ML inj SYRINge IV PRN (11:20)
[2022-04-23] MEDS ORDERED: hydrALAZINE 20mg/ml inj. IV PRN (11:20)
[2022-04-23] MEDS ORDERED: ROPIVAcaine 0.2%/PF PUMP/bolus 545 ML ADDCANAL SCH (11:20)
[2022-04-23] MEDS ORDERED: fentaNYL/PF 50MCG/1 ML 2ML syringe ONE (11:46)
[2022-04-23] MEDS ORDERED: MIDAZolam 1mg/ml 10ml vial ONE (11:57)
[2022-04-23] MEDS ORDERED: ROPIVAcaine 0.5% (5mg/ml) 30ml vial ONE (12:59)
[2022-04-23] MEDS: gabapentin 300mg capsule PO SCH ×2 (13:00→23:45)
--- NOTE | 2022-04-23 13:48 | NUR ---
Received from OR via , accompanied by Anesthesiologist CHEYANNE AND OR NURSE and report given by Anesthesiolgist. PT IS AWAKE AND ALERT AND DENIES PAIN OR DISCOMFORT. RT KNEE WITH DONNIE DRESSING ONQ CATH DRESSING AND PWDR PACK SLING; CDI. VSS Addendum: 04/23/22 at 1407 by Zara Banks RN Amended: Links added.
[2022-04-23] MEDS: ROPIVAcaine 0.2%/PF PUMP/bolus 545 ML ADDCANAL SCH (13:56)
[2022-04-23] MEDS ORDERED: tranexamic acid inj. 1,000 MG in normal saline 100ml IV soln 90 ML IV ONE (15:30)
[2022-04-23] MEDS ORDERED: [UNRECOGNIZED DRUG - OTHER] PO (16:00)
[2022-04-23] MEDS: ceFAZolin/D5W- 1GM premix 50 ML IV SCH (16:00)
--- NOTE | 2022-04-23 17:28 | NUR ---
PATIENT TAKEN TO ROOM WITH ALL BELONGINGS AND HOOKED UP TO MONITORS IN ROOM AND GIVEN CALL LIGHT, REPORT GIVEN TO RN WHO HAS TAKEN OVER PATIENT CARE. Addendum: 04/23/22 at 1854 by Zara Banks RN Amended: Links added.
--- NOTE | 2022-04-23 18:42 | NUR ---
Problems reprioritized. Patient report given, questions answered & plan of care reviewed with Ashvin CORREA, patient stable at transfer of care.
[2022-04-23] MEDS: PRO PO SCH (18:45)
[2022-04-23] MEDS: [UNRECOGNIZED DRUG - OTHER] PO SCH (18:45)
[2022-04-23] MEDS ORDERED: vancomycin inj 1,750 MG in normal saline 500ml IV soln 350 ML IV ONE (20:00)
[2022-04-23] MEDS: metoprolol succinate 25mg (24-HOUR) SR. Tablet PO SCH (20:24)
[2022-04-23] MEDS: atorvastatin 20mg tablet PO SCH (20:25)
[2022-04-23] MEDS: ascorbic acid 500mg tablet PO SCH (20:26)
[2022-04-23] MEDS: lisinopril 20mg tablet PO SCH (20:26)
[2022-04-23] MEDS: sennosides 8.6mg tablet PO SCH (20:26)
[2022-04-23] MEDS: insulin glargine (Lantus) pen - multi-dose SQ SCH (21:24)
[2022-04-24] MEDS: ceFAZolin/D5W- 1GM premix 50 ML IV SCH (00:04)
[2022-04-24] MEDS: acetaminophen 325mg tablet PO PRN ×2 (00:44→05:33)
[2022-04-24 02:00] VITALS: BP 142/71
--- NOTE | 2022-04-24 06:38 | NUR ---
Problems reprioritized. Patient report given, questions answered & plan of care reviewed with Mayra CORREA.
[2022-04-24 06:48] LABS: BASOPHILS % (AUTO) 0.2 % (0-1); EOSINOPHILS # (AUTO) 0.1 X10'3 (0-0.9); HEMATOCRIT 34.8 % (42.0-52.0); HEMOGLOBIN 11.4 g/dl (14.0-17.9); LYMPHOCYTES # (AUTO) 1.1 X10'3 (1.1-4.8); LYMPHOCYTES % (AUTO) 22.1 % (21-51); MEAN CORPUSCULAR HEMOGLOBIN 28.8 PG (27.0-31.0); MEAN CORPUSCULAR HGB CONC 32.7 g/dL (33.0-36.5); MEAN CORPUSCULAR VOLUME 87.9 FL (78-98); MEAN PLATELET VOLUME 10.5 FL (7.4-10.4); MONOCYTES # (AUTO) 0.4 X10'3 (0-0.9); NEUTROPHILS # (AUTO) 3.3 X10'3 (1.8-7.7); NEUTROPHILS % (AUTO) 67.7 % (42-75); PLATELET COUNT 92 X10'3 (140-440); RED BLOOD COUNT 3.96 X10'6 (4.70-6.10); WHITE BLOOD COUNT 4.9 X10'3 (4.5-11.0)
[2022-04-24 06:54] LABS: ANION GAP 8 (8-16); CHLORIDE 106 MMOL/L (99-107); POTASSIUM 4.3 MMOL/L (3.5-5.1); SODIUM 138 MMOL/L (135-145); TOTAL CARBON DIOXIDE 24.5 MMOL/L (24-32)
[2022-04-24] MEDS: HYDROcodone/acetaminophen 10/325mg tab PO PRN (07:23)
[2022-04-24] MEDS: PRO PO SCH ×3 (07:49→17:22)
[2022-04-24] MEDS: [UNRECOGNIZED DRUG - OTHER] PO SCH ×3 (07:49→17:22)
[2022-04-24] MEDS: doxazosin mesylate 2mg tablet PO SCH (07:50)
[2022-04-24] MEDS: multivitamins, therapeutics tablet PO SCH (07:50)
[2022-04-24] MEDS: ascorbic acid 500mg tablet PO SCH ×2 (07:50→20:38)
[2022-04-24] MEDS: aspirin 325mg tablet PO SCH (07:50)
[2022-04-24] MEDS: isosorbide mononitrate 30mg tab.SR.24H PO SCH (07:50)
[2022-04-24] MEDS: gabapentin 300mg capsule PO SCH ×3 (07:50→20:30)
[2022-04-24] MEDS: potassium cl 20mEq in 1/2 NS 1,000 ML IV SCH ×2 (08:26→14:55)
[2022-04-24] MEDS: insulin Lispro (HumaLOG) vial - multi-dose SQ SCH ×2 (09:38→13:33)
--- NOTE | 2022-04-24 11:49 | NUR ---
Joint surgery consult: Pt s/p R knee surgery this admit hx DM no A1C on carb controlled diet per EMR. Pt seen by RD for written/verbal high protein diet ed w/ RD contact information provided. Pt reports lactose intolerance and still hungry after meals is agreeable to double proteins TIDWM for satiety-dietary notified. RD encouraged pt to contact dietitian's office if further nutrition questions/concerns. Addendum: 04/24/22 at [address] Amended: Links added.
[2022-04-24 12:36] VITALS: BP 119/54
[2022-04-24 15:50] VITALS: BP 129/60
--- NOTE | 2022-04-24 18:58 | NUR ---
Problems reprioritized. Patient report given, questions answered & plan of care reviewed with Brooke RN, patient stable at transfer of care.
[2022-04-24] MEDS: atorvastatin 20mg tablet PO SCH (20:32)
[2022-04-24] MEDS: metoprolol succinate 25mg (24-HOUR) SR. Tablet PO SCH (20:35)
[2022-04-24] MEDS: celeCOXIB 100mg capsule PO SCH (20:36)
[2022-04-24] MEDS: lisinopril 20mg tablet PO SCH (20:39)
[2022-04-24] MEDS: sennosides 8.6mg tablet PO SCH (20:48)
[2022-04-24 20:58] VITALS: BP 127/57
[2022-04-24] MEDS: insulin glargine (Lantus) pen - multi-dose SQ SCH (22:16)
[2022-04-24 23:35] VITALS: BP 151/67
[2022-04-25] MEDS: potassium cl 20mEq in 1/2 NS 1,000 ML IV SCH (01:19)
[2022-04-25 03:30] VITALS: BP 152/72
[2022-04-25 07:07] LABS: BASOPHILS % (AUTO) 0.2 % (0-1); EOSINOPHILS # (AUTO) 0.1 X10'3 (0-0.9); HEMATOCRIT 30.9 % (42.0-52.0); LYMPHOCYTES # (AUTO) 1.3 X10'3 (1.1-4.8); LYMPHOCYTES % (AUTO) 23.8 % (21-51); MEAN CORPUSCULAR HEMOGLOBIN 28.5 PG (27.0-31.0); MEAN CORPUSCULAR HGB CONC 32.4 g/dL (33.0-36.5); MEAN PLATELET VOLUME 10.5 FL (7.4-10.4); MONOCYTES # (AUTO) 0.6 X10'3 (0-0.9); MONOCYTES % (AUTO) 11.5 % (2-12); NEUTROPHILS # (AUTO) 3.6 X10'3 (1.8-7.7); NEUTROPHILS % (AUTO) 63.5 % (42-75); PLATELET COUNT 86 X10'3 (140-440); RED BLOOD COUNT 3.52 X10'6 (4.70-6.10); RED CELL DISTRIBUTION WIDTH 14.4 % (11.5-14.5); WHITE BLOOD COUNT 5.6 X10'3 (4.5-11.0)
[2022-04-25 07:24] VITALS: BP 138/63
[2022-04-25] MEDS: aspirin 325mg tablet PO SCH (07:35)
[2022-04-25] MEDS: isosorbide mononitrate 30mg tab.SR.24H PO SCH (07:35)
[2022-04-25] MEDS: doxazosin mesylate 2mg tablet PO SCH (07:35)
[2022-04-25] MEDS: multivitamins, therapeutics tablet PO SCH (07:35)
[2022-04-25] MEDS: ascorbic acid 500mg tablet PO SCH ×2 (07:35→20:42)
[2022-04-25] MEDS: celeCOXIB 100mg capsule PO SCH ×2 (07:36→20:40)
[2022-04-25] MEDS: PRO PO SCH ×3 (07:36→17:17)
[2022-04-25] MEDS: gabapentin 300mg capsule PO SCH ×3 (07:36→20:43)
[2022-04-25] MEDS: [UNRECOGNIZED DRUG - OTHER] PO SCH ×3 (07:36→17:17)
[2022-04-25] MEDS: HYDROcodone/acetaminophen 10/325mg tab PO PRN (08:52)
[2022-04-25 12:19] VITALS: BP 121/61
[2022-04-25] MEDS: ROPIVAcaine 0.2%/PF PUMP/bolus 545 ML ADDCANAL SCH (12:57)
[2022-04-25] MEDS: insulin Lispro (HumaLOG) vial - multi-dose SQ SCH (13:27)
[2022-04-25 15:27] VITALS: BP 146/72
[2022-04-25 18:00] VITALS: BP 139/67
[2022-04-25] MEDS: lisinopril 20mg tablet PO SCH (20:39)
[2022-04-25] MEDS: atorvastatin 20mg tablet PO SCH (20:42)
[2022-04-25] MEDS: sennosides 8.6mg tablet PO SCH (20:43)
[2022-04-25] MEDS: metoprolol succinate 25mg (24-HOUR) SR. Tablet PO SCH (20:52)
[2022-04-25] MEDS: insulin glargine (Lantus) pen - multi-dose SQ SCH (21:25)
[2022-04-25 23:00] VITALS: BP 120/53
--- NOTE | 2022-04-25 23:00 | NUR ---
Pt. is awake alert oriented in good spirits states walked around with PT today. Right leg surgical knee elevated on pillow bilateral SCDs intact. Right pedal pulse strongly palpable. Cool pack to knee intact. Pt. able to take all meds today needs reinforcement on med purpose. Ate 95% of meal. Peripheral IV/SL intact.
[2022-04-26 03:14] VITALS: BP 157/71
[2022-04-26] MEDS: PRO PO SCH ×2 (07:18→12:30)
[2022-04-26] MEDS: [UNRECOGNIZED DRUG - OTHER] PO SCH ×2 (07:18→12:30)
[2022-04-26 07:56] LABS: BASOPHILS % (AUTO) 0.3 % (0-1); EOSINOPHILS # (AUTO) 0.1 X10'3 (0-0.9); HEMATOCRIT 33.1 % (42.0-52.0); HEMOGLOBIN 10.9 g/dl (14.0-17.9); LYMPHOCYTES # (AUTO) 1.5 X10'3 (1.1-4.8); MEAN CORPUSCULAR HEMOGLOBIN 28.9 PG (27.0-31.0); MEAN CORPUSCULAR VOLUME 87.6 FL (78-98); MEAN PLATELET VOLUME 10.6 FL (7.4-10.4); MONOCYTES # (AUTO) 0.5 X10'3 (0-0.9); NEUTROPHILS # (AUTO) 3.1 X10'3 (1.8-7.7); NEUTROPHILS % (AUTO) 59.7 % (42-75); PLATELET COUNT 103 X10'3 (140-440); RED BLOOD COUNT 3.77 X10'6 (4.70-6.10); RED CELL DISTRIBUTION WIDTH 14.5 % (11.5-14.5); WHITE BLOOD COUNT 5.2 X10'3 (4.5-11.0)
[2022-04-26] MEDS: aspirin 325mg tablet PO SCH (08:11)
[2022-04-26] MEDS: doxazosin mesylate 2mg tablet PO SCH (08:11)
[2022-04-26] MEDS: gabapentin 300mg capsule PO SCH ×2 (08:11→16:30)
[2022-04-26] MEDS: ascorbic acid 500mg tablet PO SCH (08:11)
[2022-04-26] MEDS: multivitamins, therapeutics tablet PO SCH (08:11)
[2022-04-26] MEDS: celeCOXIB 100mg capsule PO SCH (08:12)
[2022-04-26] MEDS: isosorbide mononitrate 30mg tab.SR.24H PO SCH (08:12)
[2022-04-26] MEDS: insulin Lispro (HumaLOG) vial - multi-dose SQ SCH (08:25)
[2022-04-26] MEDS: HYDROcodone/acetaminophen 10/325mg tab PO PRN ×2 (09:04→16:31)
--- NOTE | 2022-04-26 17:36 | NUR ---
I AGREE WITH CÉSAR HOPKINS ASSESSMENT.
== END 2022-04-26 16:40 | disposition home or self-care (01) | DRG 470 ==
LOC: PAS 08:19 → PCU 3S 18:00
PROVIDERS: ADMIT Orthopaedic Surgery; ATTEND Orthopaedic Surgery
PROC: 3E0T3BZ Introduction of Anesthetic Agent into Peripheral Nerves and Plexi, Percutaneous Approach (ICD-10-PCS; 2022-04-23)
PROC: 3E0T33Z Introduction of Anti-inflammatory into Peripheral Nerves and Plexi, Percutaneous Approach (ICD-10-PCS; 2022-04-23)
PROC: 0SRC0J9 Replacement of Right Knee Joint with Synthetic Substitute, Cemented, Open Approach (ICD-10-PCS; principal; 2022-04-23 11:40)
DX: M17.11 Unilateral primary osteoarthritis, right knee (principal)
CPT/HCPCS: 36415; 73560; 80051; 80053; 82948; 84443; 85025; 86885; 86900; 86901; 87081; 97110; 97116; 97161; 97530; A4215; A4349; A4618; A6449; A7000; C1713; C1776; G0378; J0690; J1815; J2250; J2405; J2765; J2795; J3010; J3370; J3480; J3490; J7040; J7060; J7120

== ENCOUNTER 2022-05-28 14:33 | Emergency (ER) | payer MEDICARE ==
[~2022-05-28] VITALS: Ht 177.8 cm; Wt 120.5 kg
[~2022-05-28 14:33] MED LIST changes: -DEXTROSE 15 GM of carb/4 tabs (each vial/BOTTLE has 4 tablets) PO PRN; -DOCUMENT DATE & TIME OF BETA-BLOCKER PO ONE; -HYDROcodone/acetaminophen 10/325mg tab PO PRN; -HYDROmorphone 1 mg/ml syringe IV PRN; -HYDROmorphone inj. 0.5 MG/0.5 ML DISP.SYRIN IV PRN; -MESSAGE TO PHARMACY PO ONE; +[UNRECOGNIZED DRUG - OTHER] PO; -acetaminophen 325mg tablet PO ONE; -bisacodyl 10mg suppository rectal RC PRN; -ceFAZolin inj. 3,000 MG in normal saline 100ml IV soln 100 ML IV ONE; -celeCOXIB 100mg capsule PO ONE; -dextrose 50%-water 50ml dispensing syringe IV PRN; -diphenhydrAMINE 25mg capsule PO PRN; -famotidine 20mg tablet PO ONE; -gabapentin 300mg capsule PO ONE; -glucagon, human recombinant 1mg kit SUBCUT PRN; -magnesium hydroxide 30ml (MOM) UD suspension PO PRN; -metoclopramide 5 mg/ml inj IV ONE; -naloxone 0.4 mg/ml inj IV PRN; -ondansetron/PF 4mg/2ml inj IV PRN; -oxyCODONE SR 10mg (sust. release) tab -2 tabs (20mg) PO ONE; -ringers solution, lacted 1,000 ML IV SCH; -tranexamic acid inj. 1,000 MG in normal saline IV soln 100ML IV ONE; -vancomycin 1,500 MG in NS 300ml IV soln IV ONE
[2022-05-28 14:39] VITALS: BP 100/51
== END 2022-05-28 21:35 | disposition left against medical advice (07) ==
LOC: ER 14:34
DX: R60.0 Localized edema (principal); I25.10 Atherosclerotic heart disease of native coronary artery without angina pectoris; I10 Essential (primary) hypertension; E11.9 Type 2 diabetes mellitus without complications; Z95.1 Presence of aortocoronary bypass graft; Z79.82 Long term (current) use of aspirin; Z79.899 Other long term (current) drug therapy
CPT/HCPCS: 71045; 93005; 93970; 99284; 99285